=== PATIENT | male | born 1965 | race Hispanic/Latino ===

== ENCOUNTER 2017-05-28 20:00 | Inpatient (IN) | payer OTHER ==
--- OUTSIDE RECORDS SUMMARY | 2017-05-28 20:03 | XMS REPORT | Clinical Summary ---
:1965 Author Organization [facility] Address [address] [place] [address] Care Team Providers Name Role Phone Asked, No Pcp Primary Care Provider Unavailable Allergies No Known Allergies Current Medications Prescription Sig. Disp. Refills Start Date End Date Status metFORMIN (GLUCOPHAGE) Take 1,000 mg by Active 1,000 mg tablet mouth 2 (two) times a day with meals. glimepiride (AMARYL) 4 MG Take 4 mg by mouth Active tablet 2 (two) times a day with meals. lisinopril Take 10 mg by mouth Active (PRINIVIL,ZESTRIL) 10 mg daily. tablet rosuvastatin (CRESTOR) 40 Take 40 mg by mouth Active MG tablet daily. insulin detemir (LEVEMIR) Inject 30 Units Active 100 unit/mL injection under the skin daily. insulin lispro (HumaLOG) Inject 10 Units Active 100 unit/mL injection under the skin daily before breakfast. Active Problems Problem Noted Date Gastroenteritis 11/07/2016 Encounters Date Type Specialty Care Team Description 11/06/2016 - [facility] due to [facility] (Primary Dx); 11/07/2016 Encounter Medicine MD Maite Gastroenteritis after 05/27/2016 Social History Tobacco Use Types Packs/Day Years Used Date Never Smoker Alcohol Use Drinks/Week oz/Week Comments No Sex Assigned at Date Recorded Not on file Last Filed Vital Signs Vital Sign Reading Time Taken Blood Pressure 114/73 11/07/2016 3:21 PM CDT Pulse 99 11/07/2016 3:21 PM CDT Temperature 36.8 C (98.2 F) 11/07/2016 3:21 PM CDT Respiratory Rate 16 11/07/2016 3:21 PM CDT Oxygen Saturation 98% 11/07/2016 3:21 PM CDT Inhaled Oxygen Concentration - - Weight 125 kg (275 lb 3.2 oz) 11/06/2016 8:38 PM CDT Height 182.9 cm (6') 11/06/2016 8:28 PM CDT Body Mass Index 37.32 11/06/2016 8:38 PM CDT Plan of Treatment Not on file Results POC glucose (11/07/2016 11:10 AM)Only the most recent of3 resultswithin the time period is included. Component Value Ref Range POC glucose 117 (H) 65 - 99 mg/dL Comment: RN Notified Meter ID: [id number] Soap Grinder: Ti Peng Specimen Performing Laboratory [facility] DEPARTMENT OF PATHOLOGY AND GENOMIC MEDICINE [address] [place] [address] Salmonella/shigella culture (11/07/2016 9:00 AM) Component Value Ref Range Salmonella/shigella culture isolate No Aeromonas isolated Comment: Specimen Information Specimen Source: Stool Specimen Site: Per rectum Specimen Performing Laboratory Stool - Per rectum [facility] DEPARTMENT OF PATHOLOGY AND GENOMIC MEDICINE [address] [place] [id number] Gastrointestinal panel (11/07/2016 9:00 AM) Component Value Ref Range Gastrointestinal panel Positive for Enteropathogenic E coli Negative for all other pathogens tested: Negative for Salmonella Negative for Campylobacter Negative for Shigella Negative for Shiga-like toxin-producing E coli Negative for Plesiomonas shigelloides Negative for Yersinia enterocolitica Negative for Vibrio species Negative for Clostridium difficile (Toxin A/B) Negative for Cryptosporidium Negative for Giardia lamblia Negative for Cyclospora cayeteanensis Negative for Entamoeba histolytica Negative for Adenovirus F 40/41 Negative for Astrovirus Negative for Norovirus GI/GII Negative for Rotavirus A Negative for Sapovirus Negative for E coli 0157 This real-time PCR assay detects the presence of nucleic acids (RNA or DNA) for the gastrointestinal pathogens listed. A result of "Not-detected" does not exclude the possibility of the presence of one or more pathogens at concentrations less than the detectable limits of the assay.:* (A) Comment: Specimen Information Specimen Source: Stool Specimen Site: Per rectum Specimen Performing Laboratory Stool - Per rectum [facility] DEPARTMENT OF PATHOLOGY AND GENOMIC MEDICINE [address] [place] [address] Estimated GFR (11/07/2016 5:20 AM) Component Value Ref Range GFR Non Af Amer 71 mL/min/1.73 m2 GFR Af Amer 86 mL/min/1.73 m2 Comment: Chronic kidney disease: <60 mL/min/1.73m2 Kidney failure: <15 mL/min/1.73m2 The estimated GFR is calculated from the IDMS-traceable Modification of Diet in Renal Disease Equation. The accuracy of the calculation is poor when the creatinine is normal. Calculated values >90 mL/min/1.73m2 are not reported. This equation has not been validated in children (<18 years), women, the elderly (>70 years), or ethnic groups other than Caucasians and Americans. Specimen Performing Laboratory Plasma specimen [facility] DEPARTMENT PATHOLOGY AND [address] [address] CBC hemogram (11/07/2016 5:20 AM) Component Value Ref Range WBC 5.8 4.5 - 11.0 k/uL RBC 4.21 (L) 4.40 - 6.00 m/uL HGB 12.2 (L) 14.0 - 18.0 g/dL HCT 37.1 (L) 41.0 - 51.0 % MCV 88.1 82.0 - 100.0 fL MCH 29.0 27.0 - 34.0 pg MCHC 32.9 31.0 - 37.0 g/dL RDW - SD 42.2 37.0 - 55.0 fL MPV 11.0 6.9 - 11.0 fL Platelet count 180 150 - 400 K/uL Nucleated RBC 0.00 /100 WBC Specimen Performing Laboratory Blood [facility] DEPARTMENT PATHOLOGY AND [address] [address] Magnesium level (11/07/2016 5:20 AM) Component Value Ref Range Magnesium 2.1 1.6 - 2.6 mg/dL Specimen Performing Laboratory Plasma specimen [facility] PATH[facility] [address] [address] Comprehensive metabolic panel (11/07/2016 5:20 AM) Component Value Ref Range Sodium 142 135 - 148 mEq/L Potassium 4.0 3.5 - 5.0 mEq/L Chloride 102 98 - 112 mEq/L CO2 28 24 - 31 mEq/L Anion gap 12 7 - 15 mEq/L Comment: Starting from June , anion gap calculation no longer incorporates potassium. Please note the change. BUN 19 6 - 20 mg/dL Creatinine 1.1 0.7 - 1.2 mg/dL Glucose 110 (H) 65 - 99 mg/dL Calcium 8.6 8.3 - 10.2 mg/dL Protein 6.5 6.3 - 8.3 g/dL Albumin 3.6 3.5 - 5.0 g/dL A/G ratio 1.2 0.7 - 3.8 Alkaline phosphatase 47 40 - 129 U/L AST 18 10 - 50 U/L ALT 26 5 - 50 U/L Total bilirubin 1.0 0.2 - 1.2 mg/dL Specimen Performing Laboratory Plasma specimen [facility] DEPARTMENT OF PATHOLOGY AND GENOMIC MEDICINE [address] [place] [address] after 05/27/2016 Insurance Payer Benefit Plan / Group Subscriber ID Type Phone Address AETNA AETNA HMO,POS,EPO, MC/EC xxxxxxxxx HMO Work: [id number] [facility] [phone] [place] [id number] Home: [phone] [facility]
[2017-05-28 21:01] LABS: Absolute Lymphocytes (CBC) 1.3 K/uL (0.7-4.9); Absolute Monocytes 0.9 K/uL (0.1-1.3); Absolute Neutrophil 8.1 K/uL (1.8-8.0); Basophils % 0.5 % (0-1.3); Eosinophils % 1.1 % (0-4.4); Lymphocytes % 12.3 % (15.3-44.8); MCH 29.1 pg (27.0-35.0); MCV 85.1 fL (80-100); MPV 9.8 fL (7.6-11.3); Monocytes % 8.6 % (3.3-12.3); RBC Red Blood Cell Count 4.82 M/uL (4.33-5.43)
[2017-05-28 21:04] LABS: Protime INR 1.05
[2017-05-28 21:24] LABS: Potassium 3.8 mEq/L (3.6-5.0)
[2017-05-28 21:30] LABS: Bilirubin Direct 0.2 mg/dL (0-0.2); Bilirubin Total 1.2 mg/dL (0.3-1.2); Magnesium 1.7 mg/dL (1.8-2.5); Protein, Total 8.7 g/dL (6.0-8.3)
--- NOTE | 2017-05-28 22:00 | RAD REPORT ---
EXAM DESCRIPTION: RAD - Foot Right 3 View - 05/28/2017 8:54 pm CLINICAL HISTORY: Right foot pain and fourth digit wound FINDINGS: No fracture or dislocation is seen. A bony destructive lesion is not seen. Vascular calcif ications are present.
[2017-05-28] MEDS ORDERED: ONDANSETRON 4 MG/2 ML VIAL ONE (22:42)
[2017-05-28] MEDS ORDERED: Levofloxacin 750mg IV 750 MG/150 ML BAG IV ONE (22:42)
[2017-05-28] MEDS ORDERED: VANCOMYCIN/NS 1 gm 1 GM/250 ML BAG ONE (22:42)
[2017-05-28] MEDS ORDERED: MORPHINE 4 MG/ML SYR ONE (22:42)
--- NOTE | 2017-05-28 22:47 | ER ---
Nurse's Notes [facility] Name: Reese Esquivel Jr Age: 51 yrs Sex: Male : 1965 Arrival Date: 05/28/2017 Time: 20:03 Bed 8 Private MD: Diagnosis: Cellulitis and acute lymphangitis-Right Lower Limb;Unspecified open wound of toe without damage to nail-Right Fourth Presentation: 05/28 20:10 Presenting complaint: Patient states: seen by PCP (Vania Mai) about right foot. pt ak1 stated toe is "purple or black". Transition of care: patient was not received from another setting of care. Complicating Factors: There are no complicating factors for this patient. Onset of symptoms is unknown. Care prior to arrival: None. 20:10 Method Of Arrival: Ambulatory ak1 20:10 Acuity: RIAZ 3 ak1 Triage Assessment: 20:13 General: Appears in no apparent distress. Behavior is calm, cooperative. Pain: Denies ak1 pain. Historical: - Allergies: 20:13 Lisinopril; ak1 - Home Meds: 20:13 Crestor Oral once daily [Active]; Humalog 10 UNITS Sub-Q nightly [Active]; Levemir 50 ak1 UNITS subcutaneous soln nightly [Active]; Metformin Oral 2 times per day [Active]; - PMHx: 20:13 Diabetes - IDDM; Gastroparesis; High Cholesterol; Hypertension; ak1 - PSHx: 20:13 Cholecystectomy; ak1 - Immunization history:: Adult Immunizations unknown. - Social history:: Smoking status: Patient/guardian denies using tobacco. Screenin:30 Abuse screen: Denies threats or abuse. Nutritional screening: No deficits noted. tl2 Tuberculosis screening: No symptoms or risk factors identified. Fall Risk None identified. Assessment: 20:28 General: Appears in no apparent distress. comfortable, Behavior is calm, cooperative, tl2 appropriate for age. Pain: Denies pain. Neuro: Level of Consciousness is awake, alert, obeys commands, Oriented to person, place, time, situation. Cardiovascular: Denies chest pain. Respiratory: Airway is patent Respiratory effort is even, unlabored, Respiratory pattern is regular, symmetrical. GI: No signs and/or symptoms were reported involving the gastrointestinal system. : No signs and/or symptoms were reported regarding the genitourinary system. Derm: Wound noted right fourth toe Wound is open, pus filled, draining fluid Other: right fourth toe is shaffer in color. Musculoskeletal: Circulation, motion, and sensation intact. Swelling present in right fourth toe. 21:30 Reassessment: Patient appears in no apparent distress at this time. Patient and/or tl2 family updated on plan of care and expected duration. Pain level reassessed. Patient is alert, oriented x 3, equal unlabored respirations, skin warm/dry/pink. 22:20 Reassessment: Patient appears in no apparent distress at this time. Pt c/o of pain to tl2 right foot. red streaking evident on right leg. PA notified. 23:00 Reassessment: Patient appears in no apparent distress at this time. Patient and/or tl2 family updated on plan of care and expected duration. Pain level reassessed. Patient is alert, oriented x 3, equal unlabored respirations, skin warm/dry/pink. 05/29 00:00 Reassessment: Patient appears in no apparent distress at this time. Patient and/or tl2 family updated on plan of care and expected duration. Pain level reassessed. Patient is alert, oriented x 3, equal unlabored respirations, skin warm/dry/pink. Vital Signs: 05/28 20:11 BP 123 / 72; Pulse 128; Resp 18; Temp 99.1(O); Pulse Ox 100% on R/A; Weight 122.47 kg ak1 (R); Height 6 ft. 0 in. (182.88 cm) (R); Pain 0/10; 20:21 BP 126 / 78; Pulse 118; Resp 18; Pulse Ox 100% on R/A; mt 20:28 BP 126 / 78; Pulse 115; Resp 20; Pulse Ox 99% on R/A; tl2 21:08 BP 138 / 90; Pulse 115; Resp 18; Pulse Ox 99% on R/A; mt 22:10 BP 129 / 73; Pulse 110; Resp 18; Pulse Ox 95% on R/A; tl2 22:13 BP 129 / 73; Pulse 110; Resp 18; Temp 99.1(O); Pulse Ox 99% on R/A; tl2 22:49 BP 117 / 77; Pulse 96; Resp 18; Pulse Ox 96% on R/A; mt 23:03 BP 127 / 84; Pulse 98; Resp 18; Pulse Ox 98% on R/A; bp 05/29 00:06 BP 132 / 85; Pulse 99; Resp 18; Pulse Ox 98% on R/A; mt 00:32 BP 123 / 81; Pulse 98; Resp 17; Pulse Ox 96% on R/A; mt 05/28 20:11 Body Mass Index 36.62 (122.47 kg, 182.88 cm) ak1 ED Course: 05/28 20:03 Patient arrived in ED. es 20:11 Triage completed. ak1 20:13 Arm band placed on Patient placed in an exam room, on a stretcher, Patient notified of ak1 wait time. 20:27 Spring Barr, MICHAEL is Primary Nurse. tl2 20:28 Germain Muller PA is PHCP. cp 20:28 Alvrao Ritchie MD is Attending Physician. cp 20:30 Patient has correct armband on for positive identification. Bed in low position. Call tl2 light in reach. Side rails up X 1. 20:30 Inserted saline lock: 22 gauge in right antecubital area, using aseptic technique. tl2 Blood collected. 20:51 X-ray completed. Portable x-ray completed in exam room. Patient tolerated procedure kw1 well. 20:52 Wound Culture Sent. tl2 22:45 Henna Venegas MD is Hospitalizing Provider. cp 05/29 00:00 No provider procedures requiring assistance completed. Patient admitted, IV remains in tl2 place. Administered Medications: 05/28 22:39 Drug: LevaQUIN 750 mg Volume: 150 ml; Route: IVPB; Infused Over: 90 mins; Site: right tl2 antecubital; 05/29 00:12 Follow up: IV Status: Completed infusion tl2 05/28 22:39 Drug: morphine 4 mg Route: IVP; Site: right antecubital; tl2 23:00 Follow up: Response: Pain is decreased tl2 22:39 Drug: Zofran 4 mg Route: IVP; Site: right antecubital; tl2 23:00 Follow up: Response: No adverse reaction tl2 05/29 00:28 Not Given (sent upstairs with patient, not given in ED): vancoMYCIN 1 grams IVPB once tl2 over 2 hrs Outcome: 05/28 22:47 Decision to Hospitalize by Provider. cp 05/29 00:00 Admitted to Tele accompanied by tech, via wheelchair, room 429, with chart, Report tl2 called to MICHAEL Logan Condition: stable Discharge instructions given to patient, Instructed on the need for admit. 00:42 Patient left the ED. tl2 Signatures: Vicky Funes Amber RN RN ak1 Germain Muller PA PA cp Spring Barr RN RN tl2 Yin Flores mt, Brian, RN RN bp Cindy Boles kw1 Corrections: (The following items were deleted from the chart) 05/28 22:21 22:13 BP 129 / 73; Pulse 110bpm; Resp 18bpm; Pulse Ox 99% RA; al tl2
--- NOTE | 2017-05-28 22:47 | EDPHYS ---
Physician Documentation [facility] Name: Reese Esquivel Jr Age: 51 yrs Sex: Male : 1965 Arrival Date: 05/28/2017 Time: 20:03 Bed 8 Private MD: ED Physician Alvaro Ritchie HPI: 05/28 20:45 This 51 yrs old Male presents to ER via Ambulatory with complaints of cp Laceration To Foot, Diabetic. 20:45 The patient presents with wound. cp 20:45 The complaints affect the plantar surface right fourth toe. Context: resulted from an cp unknown cause, the patient can fully bear weight. Onset: The symptoms/episode began/occurred 3 week(s) ago. Associated signs and symptoms: Pertinent positives: swelling, chills, Pertinent negatives: calf tenderness, fever. Severity of symptoms: in the emergency department the symptoms are unchanged, despite home interventions. Historical: - Allergies: 20:13 Lisinopril; ak1 - Home Meds: 20:13 Crestor Oral once daily [Active]; Humalog 10 UNITS Sub-Q nightly [Active]; Levemir 50 ak1 UNITS subcutaneous soln nightly [Active]; Metformin Oral 2 times per day [Active]; - PMHx: 20:13 Diabetes - IDDM; Gastroparesis; High Cholesterol; Hypertension; ak1 - PSHx: 20:13 Cholecystectomy; ak1 - Immunization history:: Adult Immunizations unknown. - Social history:: Smoking status: Patient/guardian denies using tobacco. ROS: 20:50 Constitutional: Positive for chills, Negative for body aches, fever, poor PO intake. cp 20:50 Eyes: Negative for injury, pain, redness, and discharge. cp Exam: 21:00 ECG was reviewed by the Attending Physician. cp 21:00 Constitutional: The patient appears in no acute distress, alert, awake, cp non-diaphoretic, non-toxic, well developed, well nourished. 21:00 Head/Face: Normocephalic, atraumatic. cp 21:00 Eyes: Periorbital structures: appear normal, Conjunctiva: normal, no exudate, no injection, Sclera: no appreciated abnormality, Lids and lashes: appear normal, bilaterally. 21:00 ENT: External ear(s): are unremarkable, Nose: is normal, Mouth: is normal, Posterior pharynx: is normal, airway is patent, no erythema, no exudate, Voice: is normal. 21:00 Neck: ROM/movement: is normal, is supple, without pain, no range of motions limitations, no nuchal rigidity. 21:00 Chest/axilla: Inspection: normal, Palpation: is normal, no crepitus, no tenderness. 21:00 Cardiovascular: Rate: tachycardic, Rhythm: regular, Pulses: Pulses are 2+ in right dorsalis pedis artery. Edema: is not appreciated. 21:00 Respiratory: the patient does not display signs of respiratory distress, Respirations: normal, no use of accessory muscles, no retractions, no splinting, no tachypnea, labored breathing, is not present, Breath sounds: are clear throughout, no decreased breath sounds, no stridor, no wheezing. 21:00 Abdomen/GI: Inspection: abdomen appears normal, Bowel sounds: active, all quadrants, Palpation: abdomen is soft and non-tender, in all quadrants, rebound tenderness, is not appreciated, voluntary guarding, is not appreciated, involuntary guarding, is not appreciated. 21:00 Skin: open wound noted underside and lateral aspect right fourth toe with mild drainage, moderate swelling, advancing erythema. 21:00 Neuro: Sensation: light touch is decreased in the right fourth toe. Vital Signs: 20:11 BP 123 / 72; Pulse 128; Resp 18; Temp 99.1(O); Pulse Ox 100% on R/A; Weight 122.47 kg ak1 (R); Height 6 ft. 0 in. (182.88 cm) (R); Pain 0/10; 20:21 BP 126 / 78; Pulse 118; Resp 18; Pulse Ox 100% on R/A; mt 20:28 BP 126 / 78; Pulse 115; Resp 20; Pulse Ox 99% on R/A; tl2 21:08 BP 138 / 90; Pulse 115; Resp 18; Pulse Ox 99% on R/A; mt 22:10 BP 129 / 73; Pulse 110; Resp 18; Pulse Ox 95% on R/A; tl2 22:13 BP 129 / 73; Pulse 110; Resp 18; Temp 99.1(O); Pulse Ox 99% on R/A; tl2 22:49 BP 117 / 77; Pulse 96; Resp 18; Pulse Ox 96% on R/A; mt 23:03 BP 127 / 84; Pulse 98; Resp 18; Pulse Ox 98% on R/A; bp 03/16 00:06 BP 132 / 85; Pulse 99; Resp 18; Pulse Ox 98% on R/A; mt 00:32 BP 123 / 81; Pulse 98; Resp 17; Pulse Ox 96% on R/A; mt 05/28 20:11 Body Mass Index 36.62 (122.47 kg, 182.88 cm) ak1 MDM: 05/28 20:28 Patient medically screened. cp 22:43 Data reviewed: vital signs, nurses notes, lab test result(s), radiologic studies, plain cp films. 05/28 20:41 Order name: Wound Culture cp 05/28 20:41 Order name: Blood Culture Adult (2) cp 05/28 20:41 Order name: Basic Metabolic Panel cp 05/28 20:41 Order name: CBC with Diff 05/28 20:41 Order name: LFT's cp 05/28 20:41 Order name: Magnesium cp 05/28 20:41 Order name: PT-INR cp 05/28 20:41 Order name: Ptt, Activated cp 05/28 21:12 Order name: Protime (+INR); Complete Time: 22:19 EDMS 05/28 21:12 Order name: PTT, Activated Partial Thromb; Complete Time: 22:19 EDMS 05/28 21:15 Order name: CBC with Automated Diff; Complete Time: 22:19 EDMS 05/28 21:25 Order name: Basic Metabolic Panel; Complete Time: 22:19 EDMS 05/28 22:19 Interpretation: Normal except: NA 134; CL 99; GLUC 173; CRE 1.39; GFR 54. cp 05/28 21:31 Order name: Liver (Hepatic) Function; Complete Time: 22:19 EDMS 05/28 21:31 Order name: Magnesium; Complete Time: 22:19 EDMS 05/28 20:36 Order name: XRAY Foot RIGHT 3 View cp 05/28 20:41 Order name: EKG; Complete Time: 20:42 cp 05/28 20:41 Order name: Cardiac monitoring; Complete Time: 20:52 cp 05/28 20:41 Order name: EKG - Nurse/Tech; Complete Time: 20:52 cp 05/28 20:41 Order name: IV Saline Lock; Complete Time: 20:52 cp 05/28 20:41 Order name: Labs collected and sent; Complete Time: 20:52 cp 05/28 20:41 Order name: O2 Per Protocol; Complete Time: 20:52 cp 05/28 20:41 Order name: O2 Sat Monitoring; Complete Time: 20:52 cp 05/28 22:00 Order name: RAD; Complete Time: 22:19 EDMS EC:00 Rate is 117 beats/min. Rhythm is regular. GA interval is normal. QRS interval is cp prolonged at 144 msec. QT interval is normal. Interpreted by me. Reviewed by me. Administered Medications: 22:39 Drug: LevaQUIN 750 mg Volume: 150 ml; Route: IVPB; Infused Over: 90 mins; Site: right tl2 antecubital; 05/29 00:12 Follow up: IV Status: Completed infusion tl2 05/28 22:39 Drug: morphine 4 mg Route: IVP; Site: right antecubital; tl2 23:00 Follow up: Response: Pain is decreased tl2 22:39 Drug: Zofran 4 mg Route: IVP; Site: right antecubital; tl2 23:00 Follow up: Response: No adverse reaction tl2 05/29 00:28 Not Given (sent upstairs with patient, not given in ED): vancoMYCIN 1 grams IVPB once tl2 over 2 hrs Disposition: 06:59 Co-signature as Attending Physician, Alvaro Ritchie MD Available for consultation at ps1 all times. . Disposition: 05/28/17 22:47 Hospitalization ordered by Henna Venegas for Inpatient Admission. Preliminary diagnosis are Cellulitis and acute lymphangitis - Right Lower Limb, Unspecified open wound of toe without damage to nail - Right Fourth. - Bed requested for Telemetry/MedSurg (Inpatient). - Status is Inpatient Admission. tl2 - Condition is Stable. - Problem is new. - Symptoms are unchanged. UTI on Admission? No Signatures: Dispatcher [employer] EDMS Meka Mcgarry2 Diana Cabrales RN RN mw Krenek, Amber, RN RN ak1 Germain Muller PA PA Spring Kilpatrick RN RN tl2 Alvaro Ritchie MD MD ps1
[2017-05-28] MEDS ORDERED: ACETAMINOPHEN 500 MG TAB PO PRN (23:51)
[2017-05-28] MEDS ORDERED: ONDANSETRON 4 MG/2 ML VIAL IV PRN (23:51)
[2017-05-28] MEDS ORDERED: D50W 25 GM/50 ML SYRINGE IV PRN (23:55)
[2017-05-28] MEDS ORDERED: GLUCAGON 1 MG/VIAL IM PRN (23:55)
[2017-05-29] MEDS: NA CHLORIDE 0.9% 1,000 ML IV SCH ×3 (00:47→16:11)
[2017-05-29] MEDS: VANCOMYCIN/NS 1 gm 1 GM/250 ML BAG IV ONE ×2 (01:00→03:26)
[2017-05-29] MEDS ORDERED: SODIUM CHLORIDE 0.9% 10ML INJ IV PRN (01:43)
[2017-05-29] MEDS ORDERED: MAGNES/ALUMIN/SIMET 30ML UCUP PO ONE (01:43)
[2017-05-29] MEDS ORDERED: PANTOPRAZOLE 40 MG INJ IVP ONE (01:43)
[2017-05-29 05:28] LABS: Absolute Lymphocytes (CBC) 1.5 K/uL (0.7-4.9); Absolute Monocytes 0.9 K/uL (0.1-1.3); Basophils % 0.8 % (0-1.3); Eosinophils % 0.5 % (0-4.4); Hematocrit 36.4 % (39.6-49.0); Lymphocytes % 15.7 % (15.3-44.8); MCH 28.6 pg (27.0-35.0); Monocytes % 9.2 % (3.3-12.3); RBC Red Blood Cell Count 4.23 M/uL (4.33-5.43)
[2017-05-29 05:43] LABS: Potassium 4.4 mEq/L (3.6-5.0)
[2017-05-29 05:44] LABS: Urine Appearance CLEAR; Urine Bilirubin NEGATIVE (NEG); Urine Blood TRACE (NEG); Urine Color YELLOW; Urine Glucose 3+ (NEG); Urine Protein 2+ (NEG); Urine Specific Gravity 1.025 (1.005-1.030); Urine Urobilinogen 0.2 mg/dL (0.2-1.0); Urine pH 5.5 (5.0-7.0)
[2017-05-29 05:48] LABS: Urine Microscopic Reflex ORDER UMIC
[2017-05-29 06:02] LABS: Urine Bacteria <20 /HPF (NONE SEEN); Urine Culture Reflex Order NOT NEEDED; Urine RBC <5 /HPF (NONE SEEN)
--- NOTE | 2017-05-29 07:39 | EKG ---
Test Date: 2017-05-28 Test Time: 20:53:43 [employer] Director: BILL MEASUREMENT RESULTS: Intervals: Rate: 117 OH: 144 QRSD: 144 QT: 348 QTc: 485 [place]: P: 61 OH: 144 QRS: -50 T: 52 INTERPRETIVE STATEMENTS: Sinus tachycardia Right bundle branch block Left anterior fascicular block Bifascicular block Voltage criteria for left ventricular hypertrophy Abnormal ECG Compared to ECG 03/20/2016 20:32:49 Sinus rhythm no longer present Bifascicular block still present Electronically Signed On 05-29-17 07:39:00 CDT by Trevon Malone
[2017-05-29] MEDS ORDERED: INSULIN DETEMIR 100 UNIT/1 ML INSULIN SQ SCH (08:00)
[2017-05-29] MEDS: METOPROLOL TAR 25 MG TAB PO SCH ×2 (08:00→20:31)
--- NOTE | 2017-05-29 08:00 | P.HP ---
Certification for Inpatient Patient admitted to: Inpatient With expected LOS: >2 Midnights Patient will require the following post-hospital care: None Practitioner: I am a practitioner with admitting privileges, knowledge of patient current condition, hospital course, and medical plan of care. Services: Services provided to patient in accordance with Admission requirements found in Title 42 Section 412.3 of the Code of Federal Regulations Patient History Date of Service: 05/29/17 Reason for admission: diabetic foot ulcer History of Present Illness: Patient is a 51-year-old gentleman with a history of diabetes times 20 years. He takes long-acting insulin to control his blood sugars. He had been working in [employer] stubbed his toe. He develop some erythema in the toe initially. This morning he looked status toe in and had been discolored. There was a bluish hue to it. Patient went to see his PCP who prescribed antibiotics. However, his concern was his toe was getting worse and he has streaking up his right leg so he came to the emergency room. In the emergency room he was evaluated. He has a normal white count with no fevers. However he does have streaking up his right salvador. He will be admitted to the hospital for MRI of the foot. If this is negative she should be able to go home. He does have significant diabetic neuropathy on exam. He will need close follow-up. Allergies lisinopril Allergy (Severe, Verified 05/29/17 00:46) Hives Home Medications: Insulin -Regular Human [Novolin -R*] 10 unit SQ AC 05/29/17 Insulin Detemir [Levemir] 40 unit SQ BEDTIME 05/29/17 Metformin HCl [Glucophage] 1,000 mg PO BID 05/29/17 Polyethylene Glycol 3350 [Miralax] 1 packet PO DAILYPRN PRN 05/29/17 Rosuvastatin [Crestor*] 1 tab PO BEDTIME 05/29/17 - Past Medical/Surgical History Diabetic: Yes -: gastroparesis -: SLEEP APNEA -: HYPERLIPIDEMIA -: htn -: high cholesterol -: pud -: esophagitis -: Laparoscopic cholecystectomy(03/05/2016) - Family History Father Medical History: Diabetes Mother Medical History: Hypertension - Social History Smoking Status: Never smoker Alcohol use: No CD- Drugs: No Caffeine use: Yes Place of Residence: Home Review of Systems 10-point ROS is otherwise unremarkable Physical Examination - Vital Signs Temperature: 97.4 F Blood Pressure: 133/80 Pulse: 98 Respirations: 16 Pulse Ox (%): 98 - Physical Exam General: Alert, In no apparent distress, Oriented x3 HEENT: Atraumatic, PERRLA, Mucous membr. moist/pink, EOMI, Sclerae nonicteric Neck: Supple, 2+ carotid pulse no bruit, No LAD, Without JVD or thyroid abnormality Respiratory: Clear to auscultation bilaterally, Normal air movement Cardiovascular: Regular rate/rhythm, Normal S1 S2, No murmurs Gastrointestinal: Normal bowel sounds, Soft and benign, Non-distended, No tenderness Musculoskeletal: No clubbing, No swelling, No tenderness Integumentary: No rashes Neurological: Normal gait, Normal speech, Normal strength at 5/5 x4 extr, Normal tone, Sensation intact, Cranial nerves 3-12 intact, Normal affect Lymphatics: No axilla or inguinal lymphadenopathy - Studies Laboratory Data (last 24 hrs) 05/28/17 20:30: PT 12.4, INR 1.05, APTT 27.1 05/28/17 20:30: WBC 10.5, Hgb 14.0, Hct 41.0, Plt Count 241 05/28/17 20:30: Sodium 134 L, Potassium 3.8, BUN 19, Creatinine 1.39 H, Glucose 173 H, Magnesium 1.7 L, Total Bilirubin 1.2, AST 21, ALT 19, Alkaline Phosphatase 77 Assessment & Plan - Problems (Diagnosis) (1) Diabetic foot ulcer Current Visit: Yes Status: Acute (2) Cellulitis Current Visit: Yes Status: Acute (3) Diabetic neuropathy Current Visit: Yes Status: Acute (4) Obesity (BMI 30-39.9) Current Visit: Yes Status: Acute (5) GERD (gastroesophageal reflux disease) Current Visit: No Status: Acute Qualifiers: (6) Malignant hypertension Current Visit: No Status: Acute (7) Sleep apnea Current Visit: No Status: Acute (8) Diabetes mellitus Onset Date: 09/24/15 Current Visit: No Status: Chronic Qualifiers: - Plan 1. Continue with IV antibiotic 2. Continue with local wound care 3. Surgical consultation depending on MRI findings 4. Gentle IV hydration 5. MRI of the foot 6. Strict blood sugar monitoring 7. Pain control 8. GI and DVT prophylaxis Discharge Plan: Home Plan to discharge in: Greater than 2 days - Advance Directives Does patient have a Living Will: No Does patient have a Durable POA for Healthcare: No - Code Status/Comfort Care Code Status Assessed: Yes Code Status: Full Code Critical Care: No Time Spent Managing PTS Care (In Minutes): 50
[2017-05-29] MEDS: PANTOPRAZOLE 40MG TABLET PO SCH ×2 (08:01→20:31)
[2017-05-29] MEDS: SUCRALFATE 1 GM TABLET PO SCH ×4 (08:01→20:30)
[2017-05-29] MEDS: ASPIRIN 81 MG CHEWABLE TABLET PO SCH (08:01)
[2017-05-29] MEDS ORDERED: PANTOPRAZOLE 40 MG INJ IVP SCH (09:00)
[2017-05-29] MEDS ORDERED: VANCOMYCIN 1.5 GM in NA CHLORIDE 0.9% 500 ML IVPB SCH (09:00)
[2017-05-29 10:35] LABS: A1c Component 1.35 mg/dL; Hemoglobin A1c 12.4 % (4-6.0)
--- NOTE | 2017-05-29 10:47 | RAD REPORT ---
EXAM DESCRIPTION: MRI - Foot Right Wo Cont - 05/29/2017 9:45 am CLINICAL HISTORY: Right foot pain and swelling. COMPARISON: None. TECHNIQUE: Axial, sagittal and coronal magnetic resonance imaging of the right foot was obtained. FINDINGS: Abnormal signal is present throughout most of the fourth proximal and middle phalanges. Ed linda is present within the adjacent subcutaneous tissues. A small area of abnormal signal involves the base of the fourth distal phalanx as well. A soft tissue abscess is not seen. IMPRESSION: Osteomyelitis involving almost all of the fourth proximal and middle phalanges. A small area of osteomyelitis also involves the base of the fourth distal phalanx.
--- NOTE | 2017-05-29 10:57 | RAD REPORT ---
EXAM DESCRIPTION: VAS - Lower Extremity Artery Uni Ltd - 05/29/2017 10:39 am CLINICAL HISTORY: Peripheral arterial disease. COMPARISON: None. FINDINGS: Spectral, color and power Doppler interrogation of the right lower extremity arterial syst em was performed. Triphasic waveforms are seen throughout the right lower extremity arterial system. Mild atherosclerot ic plaquing is seen in the posterior tibial artery and dorsalis pedis artery. No occlusion or stenosi s. IMPRESSION: No significant right lower extremity arterial vascular disease seen.
[2017-05-29] MEDS ORDERED: VANCOMYCIN 2 GM in NA CHLORIDE 0.9% 500 ML IVPB SCH (15:00)
[2017-05-29] MEDS: PIPER/TAZO/NS 3.375gm 3.375 GM/100 ML BAG IV SCH (16:16)
[2017-05-29] MEDS: VANCOMYCIN 2 GM in NA CHLORIDE 0.9% 500 ML IVPB SCH (20:30)
[2017-05-29] MEDS: INSULIN DETEMIR 100 UNIT/1 ML INSULIN SQ SCH (20:30)
[2017-05-29] MEDS: ATORVASTATIN 20 MG TAB PO SCH (20:31)
[2017-05-29] MEDS: ROSUVASTATIN 10 MG TAB PO SCH (20:31)
[2017-05-29] MEDS ORDERED: Levofloxacin500mg IV 500 MG/100 ML BAG IV SCH (22:00)
[2017-05-30] MEDS: PIPER/TAZO/NS 3.375gm 3.375 GM/100 ML BAG IV SCH ×3 (00:41→16:46)
--- NOTE | 2017-05-30 03:28 | CON ---
Date of Consultation: 05/29/2017 Reason For Service: Right foot diabetic ulcer with cellulitis, osteomyelitis and ischemic changes of the right fourth toe. Indications: This is the case of a 51-year-old patient with history of diabetes who comes to the [facility] with cellulitis over the right foot region found to have an ulcer on the lateral aspect of the fourth toe with bone involvement. He has not been able to use his shoes. He is trying to do the bes t he can with his diabetes. He denies any trauma, dysuria, hematochezia, or melena. Review of Systems: Constitutional: Denies any fever. Gastrointestinal: Denies any nausea, vomiting. Respiratory: Denies any short of breath. Allergies: LISINOPRIL. Medications: Insulin, metformin, Crestor. Medical Problems: As above plus high cholesterol, hyperlipidemia, sleep apnea, hypertension. He flores s not smoke. He does not drink alcohol. Family History: Diabetes. Physical Examination: General: The patient is awake and alert. HEENT: Pupils are equal and reactive, anicteric. Neck: Supple. Chest: Clear. Abdomen: Soft and depressible. Extremities: The patient has a good peripheral pulses femoral popliteal and dorsalis pedis. On the right foot, fourth toe, the patient has ischemia of that toe over the entire foot, associated with a lateral ulcer of that fourth toe with bone exposed. Decrease capillary refill on that toe. MRI of t hat foot shows osteomyelitis involving almost in all the fourth proximal and middle phalanx with oste omyelitis of the fourth distal phalanx. Laboratory Data: Blood work shows WBC count of 10.5, INR is 1.25. Hemoglobin A1c 12.4. Assessment: A 51-year-old patient with diabetic foot ulcer infected osteomyelitis present. We are g oing to use Santyl and we are going to put dressings in between trying to keep the area dry as we can . He was explained the importance of glucose control, diabetes control, diet and proper shoes. At t his moment, he has strong peripheral pulses. Hopefully, when we control his infection, his ischemia improve otherwise he may need an amputation of that toe. He understands that. HM/MODL Voice ID: [id number] Report ID: [id number]
[2017-05-30] MEDS: NA CHLORIDE 0.9% 1,000 ML IV SCH ×2 (05:45→14:35)
[2017-05-30] MEDS: INSULIN DETEMIR 100 UNIT/1 ML INSULIN SQ SCH ×2 (08:23→20:56)
[2017-05-30] MEDS: ASPIRIN 81 MG CHEWABLE TABLET PO SCH (08:24)
[2017-05-30] MEDS: METOPROLOL TAR 25 MG TAB PO SCH ×2 (08:24→20:57)
[2017-05-30] MEDS: PANTOPRAZOLE 40MG TABLET PO SCH ×2 (08:24→20:57)
[2017-05-30] MEDS: SUCRALFATE 1 GM TABLET PO SCH ×4 (08:24→20:56)
--- NOTE | 2017-05-30 13:27 | P.PN ---
Subjective Date of Service: 05/30/17 Chief Complaint: diabetic foot ulcer Examined at bedside with RN. Chart reviewed. Case discussed with general surgery. At this time patient states that he feels better. Cellulitis of the leg improving on IV antibiotics Review of Systems General: As per HPI Physical Examination - Vital Signs Temperature: 97.9 F Blood Pressure: 161/85 Pulse: 71 Respirations: 18 Pulse Ox (%): 99 - Physical Exam General: Alert, In no apparent distress, Oriented x3 HEENT: Atraumatic, PERRLA, EOMI Neck: Supple, JVD not distended Respiratory: Clear to auscultation bilaterally, Normal air movement Cardiovascular: Regular rate/rhythm, Normal S1 S2 Gastrointestinal: Normal bowel sounds, No tenderness Musculoskeletal: Erythema, Tenderness, Warmth Integumentary: Skin breakdown Neurological: Normal speech, Normal tone, Normal affect Lymphatics: No axilla or inguinal lymphadenopathy - Studies Microbiology Data (last 24 hrs): 05/28/17 20:30 Wound - Right Toe Gram Stain - Final Medications List Reviewed: Yes Assessment & Plan - Problems (Diagnosis) (1) Cellulitis Onset Date: 05/29/17 Current Visit: Yes Status: Acute Plan: cellulites of the left lower extremity -IV abx and wound care -Xray of the foot + for osteomylitis -Dr Steward and Dr Gastelum consulted. -Culture pending. Growing 3+ beta hemolytic thus far Qualifiers: Site of cellulitis: extremity Site of cellulitis of extremity: lower extremity Laterality: left Qualified Code(s): L03.116 - Cellulitis of left lower limb (2) Diabetic foot ulcer Onset Date: 05/29/17 Current Visit: Yes Status: Acute Plan: See # 1 Qualifiers: Diabetic foot ulcer location: toe Diabetes mellitus type: type 2 Laterality: left Non-pressure ulcer stage: with bone involvement without evidence of necrosis Qualified Code(s): E11.621 - Type 2 diabetes mellitus with foot ulcer; L97.526 - Non-pressure chronic ulcer of other part of left foot with bone involvement without evidence of necrosis; L97.526 - Non-pressure chronic ulcer of other part of left foot with bone involvement without evidence of necrosis; L97.526 - Non-pressure chronic ulcer of other part of left foot with bone involvement without evidence of necrosis; L97.526 - Non-pressure chronic ulcer of other part of left foot with bone involvement without evidence of necrosis (3) GERD (gastroesophageal reflux disease) Onset Date: 05/29/17 Current Visit: Yes Status: Chronic Qualifiers: Esophagitis presence: without esophagitis Qualified Code(s): K21.9 - Gastro -esophageal reflux disease without esophagitis (4) Obesity (BMI 30-39.9) Onset Date: 05/29/17 Current Visit: Yes Status: Chronic (5) Diabetes mellitus Onset Date: 09/24/15 Current Visit: No Status: Chronic Qualifiers: Diabetes mellitus type: type 2 Diabetes mellitus marine oil terminal superintendent insulin use: with marine oil terminal superintendent use Diabetes mellitus complication status: with circulatory complication Diabetes mellitus complication detail: with peripheral angiopathy without gangrene Qualified Code(s): E11.51 - Type 2 diabetes mellitus with diabetic peripheral angiopathy without gangrene; Z79.4 - residential (current) use of insulin; Z79.4 - director long term care (current) use of insulin; Z79.4 - director long term care (current) use of insulin; Z79.4 - director long term care (current) use of insulin (6) Hyperlipidemia Onset Date: 09/24/15 Current Visit: No Status: Chronic Qualifiers: Hyperlipidemia type: mixed hyperlipidemia Qualified Code(s): E78.2 - Mixed hyperlipidemia Discharge Plan: LTAC Plan to discharge in: 48 Hours - Code Status/Comfort Care Code Status Assessed: Yes Critical Care: No
[2017-05-30] MEDS: VANCOMYCIN 2 GM in NA CHLORIDE 0.9% 500 ML IVPB SCH (14:34)
--- NOTE | 2017-05-30 17:44 | PN ---
Date of Progress Note: 05/30/2017 Subjective: Diagnosis of cellulitis of the right foot with infected diabetic ulcer osteomyelitis rig ht 4th toe. The patient improved and no fever. Review of Systems: Respiratory: No shortness of breath. Gastrointestinal: No nausea. No vomiting. Extremities: Aspiration. Please the patient's H and P. Physical Examination: General: The patient is awake and alert. No distress. Abdomen: Benign. Extremities: Right foot looks better, less erythema. The toe is still ischemic, localized to 4th to e only. Dorsalis pedis pulse is still present, ulcer delineating. Laboratory Data: Blood work shows a glucose 164. Assessment: A 51-year-old patient with cellulitis of the right leg and foot with osteomyelitis of th e right fourth toe with diabetic infected ulcer. Continue Santyl. Continue hydration. Glucose cont rol. IV antibiotics. Plan: The patient will be taken to surgery in the next 24 to 48 hours to delineate to do debridement of tissue that is already devitalized with no chance of recovery. We explained to him the consent f or debridement of the right toe diabetic ulcer with benefits, alternatives, and risks including but n ot limiting to infection, bleeding, damage to adjacent structures, nonhealing of the wound, [place], and even . He understands he may still need amputation of that toe. HM/MODL Voice ID: [id number] Report ID: [id number]
[2017-05-30] MEDS: ATORVASTATIN 20 MG TAB PO SCH (20:56)
[2017-05-30] MEDS: ROSUVASTATIN 10 MG TAB PO SCH (20:56)
[2017-05-30] MEDS: MORPHINE 2 MG/ML SYR IV PRN (20:58)
[2017-05-31] MEDS: PIPER/TAZO/NS 3.375gm 3.375 GM/100 ML BAG IV SCH ×3 (00:12→16:47)
[2017-05-31] MEDS: NA CHLORIDE 0.9% 1,000 ML IV SCH ×2 (01:45→08:06)
[2017-05-31] MEDS: MORPHINE 2 MG/ML SYR IV PRN (04:24)
[2017-05-31] MEDS: METOPROLOL TAR 25 MG TAB PO SCH ×2 (08:02→21:21)
[2017-05-31] MEDS: ASPIRIN 81 MG CHEWABLE TABLET PO SCH (08:03)
[2017-05-31] MEDS: PANTOPRAZOLE 40MG TABLET PO SCH ×2 (08:03→21:22)
[2017-05-31] MEDS: SUCRALFATE 1 GM TABLET PO SCH ×4 (08:03→21:21)
[2017-05-31] MEDS: INSULIN DETEMIR 100 UNIT/1 ML INSULIN SQ SCH ×2 (08:04→21:20)
[2017-05-31] MEDS: COLLAGENASE 30 GM OINTMENT TOP SCH (08:05)
[2017-05-31] MEDS: VANCOMYCIN 2 GM in NA CHLORIDE 0.9% 500 ML IVPB SCH ×2 (09:53→21:21)
--- NOTE | 2017-05-31 12:20 | P.PN ---
Subjective Date of Service: 05/31/17 Chief Complaint: diabetic foot ulcer Examined at bedside with RN. Chart reviewed. Case discussed with general surgery. At this time patient states that he feels better. Cellulitis of the leg improving on IV antibiotics. Culture + for Group A strep Review of Systems 10-point ROS is otherwise unremarkable Physical Examination - Vital Signs Temperature: 97.2 F Blood Pressure: 170/83 Pulse: 76 Respirations: 98 Pulse Ox (%): 98 - Physical Exam General: Alert, In no apparent distress, Oriented x3 HEENT: Atraumatic, PERRLA, EOMI Neck: Supple, JVD not distended Respiratory: Clear to auscultation bilaterally, Normal air movement Cardiovascular: Regular rate/rhythm, Normal S1 S2 Gastrointestinal: Normal bowel sounds, No tenderness Musculoskeletal: Erythema, Tenderness Integumentary: Skin breakdown Neurological: Normal speech, Normal tone, Normal affect Lymphatics: No axilla or inguinal lymphadenopathy - Studies Microbiology Data (last 24 hrs): 05/28/17 20:30 Wound - Right Toe Gram Stain - Final 05/28/17 20:30 Wound - Right Toe Culture & Sensitivity - Final Streptococcus Agalactiae H Medications List Reviewed: Yes Assessment & Plan - Problems (Diagnosis) (1) Cellulitis Onset Date: 05/29/17 Current Visit: Yes Status: Acute Plan: cellulites of the right lower extremity. Improving today -IV abx and wound care -Xray of the foot + for osteomylitis -Dr Steward and Dr Gastelum consulted. -Possible OR peña for surgical procedure -Culture pending. Growing Strep Agalatice Qualifiers: Site of cellulitis: extremity Site of cellulitis of extremity: lower extremity Laterality: left Qualified Code(s): L03.116 - Cellulitis of left lower limb (2) Diabetic foot ulcer Onset Date: 05/29/17 Current Visit: Yes Status: Acute Plan: See # 1 Qualifiers: Diabetic foot ulcer location: toe Diabetes mellitus type: type 2 Laterality: left Non-pressure ulcer stage: with bone involvement without evidence of necrosis Qualified Code(s): E11.621 - Type 2 diabetes mellitus with foot ulcer; L97.526 - Non-pressure chronic ulcer of other part of left foot with bone involvement without evidence of necrosis; L97.526 - Non-pressure chronic ulcer of other part of left foot with bone involvement without evidence of necrosis; L97.526 - Non-pressure chronic ulcer of other part of left foot with bone involvement without evidence of necrosis; L97.526 - Non-pressure chronic ulcer of other part of left foot with bone involvement without evidence of necrosis (3) GERD (gastroesophageal reflux disease) Onset Date: 05/29/17 Current Visit: Yes Status: Chronic Qualifiers: Esophagitis presence: without esophagitis Qualified Code(s): K21.9 - Gastro -esophageal reflux disease without esophagitis (4) Obesity (BMI 30-39.9) Onset Date: 05/29/17 Current Visit: Yes Status: Chronic (5) Diabetes mellitus Onset Date: 09/24/15 Current Visit: No Status: Chronic Qualifiers: Diabetes mellitus type: type 2 Diabetes mellitus terminal makeup operator insulin use: with terminal makeup operator use Diabetes mellitus complication status: with circulatory complication Diabetes mellitus complication detail: with peripheral angiopathy without gangrene Qualified Code(s): E11.51 - Type 2 diabetes mellitus with diabetic peripheral angiopathy without gangrene; Z79.4 - bed bug exterminator (current) use of insulin; Z79.4 - senior living (current) use of insulin; Z79.4 - senior living (current) use of insulin; Z79.4 - senior living (current) use of insulin (6) Hyperlipidemia Onset Date: 09/24/15 Current Visit: No Status: Chronic Qualifiers: Hyperlipidemia type: mixed hyperlipidemia Qualified Code(s): E78.2 - Mixed hyperlipidemia
[2017-05-31] MEDS: ROSUVASTATIN 10 MG TAB PO SCH (21:21)
[2017-05-31] MEDS: ATORVASTATIN 20 MG TAB PO SCH (21:22)
[2017-06-01] MEDS: MORPHINE 2 MG/ML SYR IV PRN ×2 (00:36→05:47)
[2017-06-01] MEDS: NA CHLORIDE 0.9% 1,000 ML IV SCH ×5 (00:37→22:34)
[2017-06-01] MEDS: PIPER/TAZO/NS 3.375gm 3.375 GM/100 ML BAG IV SCH ×3 (01:00→16:33)
[2017-06-01 06:11] LABS: Absolute Lymphocytes (CBC) 1.1 K/uL (0.7-4.9); Absolute Monocytes 0.6 K/uL (0.1-1.3); Absolute Neutrophil 5.7 K/uL (1.8-8.0); Basophils % 0.9 % (0-1.3); Eosinophils % 2.6 % (0-4.4); Hematocrit 36.8 % (39.6-49.0); Lymphocytes % 13.9 % (15.3-44.8); MCH 28.5 pg (27.0-35.0); MCV 86.1 fL (80-100); MPV 9.6 fL (7.6-11.3); Monocytes % 8.3 % (3.3-12.3); RBC Red Blood Cell Count 4.27 M/uL (4.33-5.43)
[2017-06-01 06:52] LABS: Albumin 2.8 g/dL (3.2-5.5); Bilirubin Total 0.9 mg/dL (0.3-1.2); Potassium 3.9 mEq/L (3.6-5.0); Protein, Total 6.6 g/dL (6.0-8.3)
[2017-06-01] MEDS: SUCRALFATE 1 GM TABLET PO SCH ×4 (09:00→22:27)
[2017-06-01] MEDS: PANTOPRAZOLE 40MG TABLET PO SCH ×2 (09:00→22:28)
[2017-06-01] MEDS: METOPROLOL TAR 25 MG TAB PO SCH ×2 (09:00→22:27)
[2017-06-01] MEDS: ASPIRIN 81 MG CHEWABLE TABLET PO SCH (09:00)
[2017-06-01] MEDS: COLLAGENASE 30 GM OINTMENT TOP SCH (09:00)
[2017-06-01] MEDS: VANCOMYCIN 2 GM in NA CHLORIDE 0.9% 500 ML IVPB SCH ×3 (10:52→22:28)
[2017-06-01] MEDS ORDERED: COLLAGENASE 30 GM OINTMENT TOP ONE (11:00)
[2017-06-01] MEDS ORDERED: PROPOFOL 200 MG/20 ML VIAL IV ONE (11:01)
[2017-06-01] MEDS ORDERED: MIDAZOLAM HCL 2 MG/2 ML INJ ONE (11:02)
[2017-06-01] MEDS ORDERED: LIDOCAINE 2% MPF 5 ML VIAL ONE (11:02)
[2017-06-01] MEDS ORDERED: FENTANYL CITR 100 MCG/2 ML ONE (11:03)
[2017-06-01] MEDS ORDERED: ROCURONIUM 50 MG/5 ML VIAL IV ONE (11:03)
[2017-06-01] MEDS ORDERED: ONDANSETRON 4 MG/2 ML VIAL ONE (11:03)
--- NOTE | 2017-06-01 11:27 | P.BOP ---
Preoperative diagnosis: gangrenous diabetic ulcer R 4th toe with foot cellulitis and osteomyelitis Postoperative diagnosis: same Primary procedure: Excisional debridement of necrotic infected diabetic left 4th toe ulcer Secondary procedure: with drainage of abcess 4th toe Estimated blood loss: <5cc Specimen: necrotic tissue, culture Findings: see dictation Anesthesia: General Complications: None Transferred to: Recovery Room Condition: Good
--- NOTE | 2017-06-01 14:07 | P.PN ---
Subjective Date of Service: 05/31/17 Chief Complaint: diabetic foot necrotic ulcer with toe gangreneous changes, osteomyelitis Subjective: No new changes Review of Systems General: As per HPI Eyes: Unremarkable ENT: As per HPI Gastrointestinal: Unremarkable Musculoskeletal: As per HPI Integumentary: As per HPI Physical Examination - Vital Signs Temperature: 98.0 F Blood Pressure: 167/90 Pulse: 90 Respirations: 16 Pulse Ox (%): 95 - Physical Exam General: Alert, In no apparent distress, Oriented x3 HEENT: PERRLA, EOMI Gastrointestinal: Soft and benign Integumentary: Cyanosis (left 4th toe), Diabetic ulcer (infected over left foot and base of 4th toe) Neurological: Normal speech - Studies Microbiology Data (last 24 hrs): 05/28/17 20:30 Wound - Right Toe Gram Stain - Final 05/28/17 20:30 Wound - Right Toe Culture & Sensitivity - Final Streptococcus Agalactiae H Medications List Reviewed: Yes Assessment And Plan - Plan I&D 4ht toe and foot abscess with debridement. BAR fully explained to patient again including also non healinf wound and need for amputation.
--- NOTE | 2017-06-01 14:22 | OP ---
Date of Procedure: 06/01/2017 Surgeon: Yaniv Gastelum MD Preoperative Diagnosis: Gangrenous diabetic ulcer, right fourth toe with foot cellulitis and osteomy elitis. Postoperative Diagnosis: Gangrenous diabetic ulcer, right fourth toe with foot cellulitis and osteom yelitis. Procedure: Excisional debridement of necrotic infected diabetic ulcer, left fourth toe with drainage of an abscess, fourth toe. Specimen: Necrotic tissue and culture. Anesthesia: General. Findings: The patient has necrotic ulcer on the toe area. At least 2/3rd of that toe is ischemic wi th necrotic tissue present and gangrenous changes of the soft tissue. The patient also has osteomyel itis. Indications: This is the case of a 51-year-old patient, who came to us with diabetes, cellulitis of the right foot and leg plus ischemic right fourth toe with necrotic diabetic ulcer in that area. The patient was diagnosed with also osteomyelitis of the bone. It was explained to him the need for halima ridement of that area. He has been on antibiotics for few days already. He also on understands we m ight not be able to save that toe. He does not want to have an amputation at this moment. He gave h is consent for debridement of this area, although he understand that at one point, if this does not i mprove, he is going to have to let us remove the toe. The benefits, alternatives, and risks of debri clyde of the necrotic and gangrenous right toe ulcer with drainage of an abscess were fully explaine d to the patient, which include but are not limited to infection, bleeding, damage to adjacent struct ures, anesthesia complication, nonhealing wound, [place], and even . He also understands this may no t relieve any symptoms. He might need more than one surgical intervention. He also understands he m ay need an amputation of that toe. Procedure In Detail: The patient was brought to the operating room and placed in the supine position . The area was marked by me and the patient in the holding room. A time-out was called. Right foot was prepped and draped in sterile fashion. The patient has ischemic changes. When we cultures the skin, we noted this gangrene of the soft tissue of the toe area involving also the lateral and inferi or proximal ulcer and involved part of the foot and part of the toe. In that area, necrotic tissue w as removed finding an abscess underneath that had open loculations and explored and irrigated for cul ture. All necrotic tissue that looked completely gone was removed leaving some soft tissue in that a dain, although I am not sure exactly if it is enough to save that toe. Debridement was done. The are a was irrigated. The patient was covered with Santyl and sterile dressings. The patient was sent to recovery in stable condition. LUCI/SUKHI Voice ID: [id number] Report ID: [id number]
[2017-06-01] MEDS: INSULIN DETEMIR 100 UNIT/1 ML INSULIN SQ SCH (16:33)
--- NOTE | 2017-06-01 18:15 | P.PN ---
Subjective Date of Service: 06/01/17 Chief Complaint: diabetic foot necrotic ulcer with toe gangreneous changes, osteomyelitis Examined at bedside with RN. Chart reviewed. Case discussed with general surgery. At this time patient states that he feels better. Cellulitis of the leg improving on IV antibiotics. Culture + for Group A strep. S/p I&D Review of Systems 10-point ROS is otherwise unremarkable Physical Examination - Vital Signs Temperature: 97.8 F Blood Pressure: 152/81 Pulse: 80 Respirations: 16 Pulse Ox (%): 99 - Physical Exam General: Alert, In no apparent distress, Oriented x3 HEENT: Atraumatic, PERRLA, EOMI Neck: Supple, JVD not distended Respiratory: Clear to auscultation bilaterally, Normal air movement Cardiovascular: Regular rate/rhythm, Normal S1 S2 Gastrointestinal: Normal bowel sounds, No tenderness Musculoskeletal: Tenderness Integumentary: No rashes Neurological: Normal speech, Normal tone, Normal affect Lymphatics: No axilla or inguinal lymphadenopathy - Studies Medications List Reviewed: Yes Assessment & Plan - Problems (Diagnosis) (1) Cellulitis Onset Date: 05/29/17 Current Visit: Yes Status: Acute Plan: cellulites of the right lower extremity. Improving today -IV abx and wound care -Xray of the foot + for osteomylitis -Dr Steward and Dr Gastelum consulted. -S/P Surgical Debriement today -Culture pending. Growing Strep Agalatice -Pending LTAC placement. Qualifiers: Site of cellulitis: extremity Site of cellulitis of extremity: lower extremity Laterality: left Qualified Code(s): L03.116 - Cellulitis of left lower limb (2) Diabetic foot ulcer Onset Date: 05/29/17 Current Visit: Yes Status: Acute Plan: See # 1 Qualifiers: Diabetic foot ulcer location: toe Diabetes mellitus type: type 2 Laterality: left Non-pressure ulcer stage: with bone involvement without evidence of necrosis Qualified Code(s): E11.621 - Type 2 diabetes mellitus with foot ulcer; L97.526 - Non-pressure chronic ulcer of other part of left foot with bone involvement without evidence of necrosis; L97.526 - Non-pressure chronic ulcer of other part of left foot with bone involvement without evidence of necrosis; L97.526 - Non-pressure chronic ulcer of other part of left foot with bone involvement without evidence of necrosis; L97.526 - Non-pressure chronic ulcer of other part of left foot with bone involvement without evidence of necrosis (3) GERD (gastroesophageal reflux disease) Onset Date: 05/29/17 Current Visit: Yes Status: Chronic Qualifiers: Esophagitis presence: without esophagitis Qualified Code(s): K21.9 - Gastro -esophageal reflux disease without esophagitis (4) Obesity (BMI 30-39.9) Onset Date: 05/29/17 Current Visit: Yes Status: Chronic (5) Diabetes mellitus Onset Date: 09/24/15 Current Visit: No Status: Chronic Qualifiers: Diabetes mellitus type: type 2 Diabetes mellitus skilled nursing insulin use: with local company intermodal truck driver use Diabetes mellitus complication status: with circulatory complication Diabetes mellitus complication detail: with peripheral angiopathy without gangrene Qualified Code(s): E11.51 - Type 2 diabetes mellitus with diabetic peripheral angiopathy without gangrene; Z79.4 - senior living (current) use of insulin; Z79.4 - senior living (current) use of insulin; Z79.4 - technician terminal and repeater (current) use of insulin; Z79.4 - senior living (current) use of insulin (6) Hyperlipidemia Onset Date: 09/24/15 Current Visit: No Status: Chronic Qualifiers: Hyperlipidemia type: mixed hyperlipidemia Qualified Code(s): E78.2 - Mixed hyperlipidemia
[2017-06-01] MEDS: ATORVASTATIN 20 MG TAB PO SCH (22:28)
[2017-06-01] MEDS: ROSUVASTATIN 10 MG TAB PO SCH (22:29)
[2017-06-02] MEDS: INSULIN DETEMIR 100 UNIT/1 ML INSULIN SQ SCH ×2 (01:24→08:48)
[2017-06-02] MEDS: PIPER/TAZO/NS 3.375gm 3.375 GM/100 ML BAG IV SCH ×2 (01:24→08:51)
[2017-06-02] MEDS: NA CHLORIDE 0.9% 1,000 ML IV SCH ×2 (03:45→13:36)
[2017-06-02 06:40] LABS: Absolute Lymphocytes (CBC) 1.2 K/uL (0.7-4.9); Absolute Monocytes 0.6 K/uL (0.1-1.3); Absolute Neutrophil 4.7 K/uL (1.8-8.0); Basophils % 1.1 % (0-1.3); Eosinophils % 2.8 % (0-4.4); Hematocrit 36.3 % (39.6-49.0); MCH 28.4 pg (27.0-35.0); MCV 86.2 fL (80-100); MPV 9.7 fL (7.6-11.3); Monocytes % 9.3 % (3.3-12.3); RBC Red Blood Cell Count 4.22 M/uL (4.33-5.43)
[2017-06-02 06:43] VITALS: BMI 36.3
[2017-06-02 07:12] LABS: Albumin 2.5 g/dL (3.2-5.5); Potassium 4.3 mEq/L (3.6-5.0); Protein, Total 6.2 g/dL (6.0-8.3)
[2017-06-02 07:16] LABS: Bilirubin Total 0.9 mg/dL (0.3-1.2)
[2017-06-02] MEDS: METOPROLOL TAR 25 MG TAB PO SCH (08:49)
[2017-06-02] MEDS: PANTOPRAZOLE 40MG TABLET PO SCH (08:49)
[2017-06-02] MEDS: SUCRALFATE 1 GM TABLET PO SCH ×2 (08:49→13:36)
[2017-06-02] MEDS: ASPIRIN 81 MG CHEWABLE TABLET PO SCH (08:50)
[2017-06-02] MEDS: VANCOMYCIN 2 GM in NA CHLORIDE 0.9% 500 ML IVPB SCH (08:51)
[2017-06-02 11:59] VITALS: BP 146/83; TEMP 97.9
--- NOTE | 2017-06-02 14:58 | P.DS ---
Admission Date: 05/28/17 Discharge Date: 06/02/17 Disposition: ROUTINE DISCHARGE Discharge Condition: GOOD Reason for Admission: diabetic foot necrotic ulcer with toe gangreneous changes , osteomyelitis Consultations: ID Gen Surgery Procedures: I&D - Problems (1) Cellulitis Onset Date: 05/29/17 Current Visit: Yes Status: Acute Qualifiers: Site of cellulitis: extremity Site of cellulitis of extremity: lower extremity Laterality: left Qualified Code(s): L03.116 - Cellulitis of left lower limb (2) Diabetic foot ulcer Onset Date: 05/29/17 Current Visit: Yes Status: Acute Qualifiers: Diabetic foot ulcer location: toe Diabetes mellitus type: type 2 Laterality: left Non-pressure ulcer stage: with bone involvement without evidence of necrosis Qualified Code(s): E11.621 - Type 2 diabetes mellitus with foot ulcer; L97.526 - Non-pressure chronic ulcer of other part of left foot with bone involvement without evidence of necrosis; L97.526 - Non-pressure chronic ulcer of other part of left foot with bone involvement without evidence of necrosis; L97.526 - Non-pressure chronic ulcer of other part of left foot with bone involvement without evidence of necrosis; L97.526 - Non-pressure chronic ulcer of other part of left foot with bone involvement without evidence of necrosis (3) GERD (gastroesophageal reflux disease) Onset Date: 05/29/17 Current Visit: Yes Status: Chronic Qualifiers: Esophagitis presence: without esophagitis Qualified Code(s): K21.9 - Gastro -esophageal reflux disease without esophagitis (4) Obesity (BMI 30-39.9) Onset Date: 05/29/17 Current Visit: Yes Status: Chronic (5) Diabetes mellitus Onset Date: 09/24/15 Current Visit: No Status: Chronic Qualifiers: Diabetes mellitus type: type 2 Diabetes mellitus mcfp insulin use: with mcfp use Diabetes mellitus complication status: with circulatory complication Diabetes mellitus complication detail: with peripheral angiopathy without gangrene Qualified Code(s): E11.51 - Type 2 diabetes mellitus with diabetic peripheral angiopathy without gangrene; Z79.4 - intermediate card tender (current) use of insulin; Z79.4 - intermediate card tender (current) use of insulin; Z79.4 - intermediate card tender (current) use of insulin; Z79.4 - shelter (current) use of insulin (6) Hyperlipidemia Onset Date: 09/24/15 Current Visit: No Status: Chronic Qualifiers: Hyperlipidemia type: mixed hyperlipidemia Qualified Code(s): E78.2 - Mixed hyperlipidemia Brief History of Present Illness: Patient is a 51-year-old gentleman with a history of diabetes times 20 years. He takes long-acting insulin to control his blood sugars. He had been working in [employer] stubbed his toe. He develop some erythema in the toe initially. This morning he looked status toe in and had been discolored. There was a bluish hue to it. Patient went to see his PCP who prescribed antibiotics. However, his concern was his toe was getting worse and he has streaking up his right leg so he came to the emergency room. In the emergency room he was evaluated. He has a normal white count with no fevers. However he does have streaking up his right salvador. He will be admitted to the hospital for MRI of the foot. If this is negative she should be able to go home. He does have significant diabetic neuropathy on exam. He will need close follow-up. Hospital Course: During the hospital stay patient remained stable Patient was initially admitted to the hospital for cellulitis of the right toe. Was found to have crushing injury. General surgery was consulted and patient was started on empiric antibiotics wound cultures were collected before the antibiotics were started. Patient's culture was positive for strep Agalactice and general surgery did an I and D in the OR. At that point, the recommendation was made to continue patient on IV antibiotics. MRI was done which was consistent with osteomyelitis this patient was to be on IV antibiotics for 6 weeks to treat the bone infection. Patient was then transferred over to a long-term acute care facility at [facility]. Vital Signs/Physical Exam: Temp Pulse Resp BP Pulse Ox 97.9 F 67 18 146/83 H 95 06/02/17 11:59 06/02/17 11:59 06/02/17 11:59 06/02/17 11:59 06/02/17 11:59 General: Alert, In no apparent distress HEENT: Atraumatic, PERRLA, EOMI Neck: Supple, JVD not distended Respiratory: Clear to auscultation bilaterally, Normal air movement Cardiovascular: Regular rate/rhythm, Normal S1 S2 Gastrointestinal: Normal bowel sounds, No tenderness Musculoskeletal: No tenderness Integumentary: No rashes Neurological: Normal speech, Normal tone, Normal affect Lymphatics: No axilla or inguinal lymphadenopathy Laboratory Data at Discharge: WBC 6.8 K/uL (4.3-10.9) 06/02/17 05:36 Hgb 12.0 g/dL (13.6-17.9) L 06/02/17 05:36 Hct 36.3 % (39.6-49.0) L 06/02/17 05:36 Plt Count 254 K/uL (152-406) 06/02/17 05:36 PT 12.4 SECONDS (9.5-12.5) 05/28/17 20:30 INR 1.05 05/28/17 20:30 APTT 27.1 SECONDS (24.3-36.9) 05/28/17 20:30 Sodium 139 mEq/L (135-145) 06/02/17 05:36 Potassium 4.3 mEq/L (3.6-5.0) 06/02/17 05:36 BUN 10 mg/dL (6-20) 06/02/17 05:36 Creatinine 1.09 mg/dL (0.61-1.24) 06/02/17 05:36 Glucose 143 mg/dL (65-120) H 06/02/17 05:36 Magnesium 1.7 mg/dL (1.8-2.5) L 05/28/17 20:30 Total Bilirubin 0.9 mg/dL (0.3-1.2) 06/02/17 05:36 AST 16 IU/L (10-42) 06/02/17 05:36 ALT 15 IU/L (10-60) 06/02/17 05:36 Alkaline Phosphatase 56 IU/L (42-121) 06/02/17 05:36 Triglycerides 75 mg/dL (35-160) 05/29/17 04:45 Cholesterol 175 mg/dL (<200) 05/29/17 04:45 HDL Cholesterol 45 mg/dL (27-67) 05/29/17 04:45 Cholesterol/HDL Ratio 3.89 05/29/17 04:45 Home Medications: Insulin -Regular Human [Novolin -R*] 10 unit SQ AC 05/29/17 Insulin Detemir [Levemir] 40 unit SQ BEDTIME 05/29/17 Metformin HCl [Glucophage] 1,000 mg PO BID 05/29/17 Polyethylene Glycol 3350 [Miralax] 1 packet PO SEECOM 05/29/17 Rosuvastatin [Crestor*] 1 tab PO BEDTIME 05/29/17 Vancomycin/0.9 % Sod Chloride [Vanco 2 Gram/250 ml-0.9% NaCl] 2 gm IV Q12H #28 plast..bag 06/02/17 New Medications: Vancomycin/0.9 % Sod Chloride [Vanco 2 Gram/250 ml-0.9% NaCl] 2 gm IV Q12H #28 plast..bag Diet: Regular Activity: Ad sam Followup: Robin Steward MD [ACTIVE - CAN ADMIT] - 1-2 Weeks Yaniv Gastelum MD [ACTIVE - CAN ADMIT] - 1-2 Weeks
[2017-06-02] MEDS: COLLAGENASE 30 GM OINTMENT TOP SCH (15:06)
[2017-06-02 15:56] VITALS: O2SAT 95
--- NOTE | 2017-06-02 17:46 | CON ---
History Of Present Illness: This is a 51-year-old male, coming in with significant history of diabet es mellitus for 20 years, coming in with right foot gas gangrenous changes to the fourth toe with MRI showing osteomyelitis in the proximal and mid phalanx and distal phalanx area. The patient is curre ntly being treated with IV antibiotic including vancomycin. Allergies: LISINOPRIL. Medications: The patient is currently on vancomycin and Zosyn. See MARs for other medication. Past Medical History: Diabetes mellitus, gastroparesis, sleep apnea, hyperlipidemia, hypertension, p eptic ulcer disease, esophagitis. Past Surgical History: Right foot fourth toe debridement. Family History: Diabetes mellitus and hypertension. Social History: Nonsmoker, nondrinker. Review of Systems: A 10-point review was performed. Physical Examination: General: This is a 51-year-old male, lying in bed, not in any acute cardiopulmonary distress. Vital Signs: Temperature 97.9, pulse 67, respiration 18, blood pressure 146/83. HEENT: Unremarkable. Neck: Supple. Lungs: Basal crackles. Heart: S1, S2. Regular. Abdomen: Soft, nontender. Bowel sounds positive. Extremity: Right foot with fourth toe gangrenous changes noted to the mid toe section. Diagnostic Data: MRI showing distal toe osteomyelitis, status post debridement. Laboratory Data: Shows WBC 6.8, hemoglobin 12, platelets 254. Chemistry shows sodium 139, potassium 4.3, chloride 106, bicarb 26, BUN 10, creatinine 1.09. Glucose is 143. Hemoglobin A1c 12.4. Album in is 2.5. Assessment And Plan: Right foot fourth toe osteomyelitis and gangrenous changes to the distal toe, d iabetic foot ulcer, uncontrolled diabetes mellitus, hypertension. Continue antibiotic including vanc omycin and Zosyn. We will follow the patient closely. Thank you Dr. Gustafson for consult. NF/MODL Voice ID: [id number] Report ID: [id number]
== END 2017-06-02 17:36 | DRG 264 ==
LOC: ER 20:00 → ERHOLD 22:47 → 4TH 05-29 00:12
PROVIDERS: ADMIT Hospitalist; ATTEND Hospitalist
PROC: 0JBQ0ZZ Excision of Right Foot Subcutaneous Tissue and Fascia, Open Approach (ICD-10-PCS; principal; 2017-06-01 10:45)
DX: E11.52 Type 2 diabetes mellitus with diabetic peripheral angiopathy with gangrene (principal); L03.115 Cellulitis of right lower limb; M86.171 Other acute osteomyelitis, right ankle and foot; I96 Gangrene, not elsewhere classified; E11.40 Type 2 diabetes mellitus with diabetic neuropathy, unspecified; E11.621 Type 2 diabetes mellitus with foot ulcer; I10 Essential (primary) hypertension; E78.00 Pure hypercholesterolemia, unspecified; E66.9 Obesity, unspecified; K21.9 Gastro-esophageal reflux disease without esophagitis; E11.69 Type 2 diabetes mellitus with other specified complication; E78.2 Mixed hyperlipidemia; E78.5 Hyperlipidemia, unspecified; G47.30 Sleep apnea, unspecified
CPT/HCPCS: 36415; 80048; 80053; 80061; 80076; 80202; 81003; 81015; 82565; 82962; 83036; 83735; 85025; 85610; 85730; 87040; 87070; 87075; 87077; 87086; 87088; 87186; 87205; 88304; 93005; 93926; 96365; 96366; 96375; 99285; C9113; J2250; J2270; J2405; J2543; J3010; J3370; J3590; J7030

== ENCOUNTER 2017-06-29 09:37 | Day surgery (SDC) | payer OTHER ==
--- OUTSIDE RECORDS SUMMARY | 2017-06-29 09:39 | XMS REPORT | Clinical Summary ---
:1965 Author Organization [facility] Address [address] [place] [address] Care Team Providers Name Role Phone Asked, [...] Type Specialty Care Team Description 11/06/2016 - [facility] to [facility] (Primary Dx); 11/07/2016 Encounter Medicine MD Maite Gastroenteritis after 06/28/2016 Social History Tobacco Use Types Packs/Day Years [...] 99 mg/dL Comment: RN Notified Meter ID: [id number] Negotiator: Ti Peng Specimen Performing Laboratory [facility] DEPARTMENT OF PATHOLOGY AND GENOMIC MEDICINE [address] [place] [address] Salmonella/shigella culture (11/07/2016 9:00 AM) Component Value Ref Range Salmonella/shigella culture isolate No Aeromonas isolated Comment: Specimen Information Specimen Source: Stool Specimen Site: Per rectum Specimen Performing Laboratory Stool - Per rectum [facility] DEPARTMENT OF PATHOLOGY AND GENOMIC MEDICINE [address] [place] [address] Gastrointestinal panel (11/07/2016 9:00 AM) Component Value [...] Specimen Performing Laboratory Stool - Per rectum [facility] DEPARTMENT OF PATHOLOGY AND GENOMIC MEDICINE [address] [place] [address] Estimated GFR (11/07/2016 5:20 AM) Component Value [...] and Americans. Specimen Performing Laboratory Plasma specimen [facility] DEPARTMENT PATHOLOGY AND [address] [address] CBC hemogram (11/07/2016 5:20 AM) Component Value [...] 0.00 /100 WBC Specimen Performing Laboratory Blood [facility] DEPARTMENT PATHOLOGY AND [address] [address] Magnesium level (11/07/2016 5:20 AM) Component Value Ref Range Magnesium 2.1 1.6 - 2.6 mg/dL Specimen Performing Laboratory Plasma specimen [facility] PATHOLOGY [address] [address] Comprehensive metabolic panel (11/07/2016 5:20 AM) Component [...] 1.2 mg/dL Specimen Performing Laboratory Plasma specimen [facility] DEPARTMENT OF PATHOLOGY AND GENOMIC MEDICINE [address] [place] [address] after 06/28/2016 Insurance Payer Benefit Plan / Group Subscriber ID Type Phone Address AETNA AETNA HMO,POS,EPO, MC/EC xxxxxxxxx HMO Work: [id number] [facility] [phone] [place] [id number] Home: [phone] [facility]
[2017-06-29] MEDS ORDERED: NA CHLORIDE 0.9% 1,000 ML ONE ×2 (09:49→11:55)
[2017-06-29 10:19] LABS: Absolute Lymphocytes (CBC) 1.8 K/uL (0.7-4.9); Absolute Monocytes 0.6 K/uL (0.1-1.3); Basophils % 1.3 % (0-1.3); Eosinophils % 4.4 % (0-4.4); Hematocrit 37.7 % (39.6-49.0); Lymphocytes % 26.9 % (15.3-44.8); MCH 27.9 pg (27.0-35.0); MCV 85.9 fL (80-100); MPV 9.3 fL (7.6-11.3); Monocytes % 9.2 % (3.3-12.3); RBC Red Blood Cell Count 4.39 M/uL (4.33-5.43)
[2017-06-29] MEDS ORDERED: PROPOFOL 200 MG/20 ML VIAL IV ONE ×2 (10:19→11:39)
[2017-06-29] MEDS ORDERED: LIDOCAINE 1% MPF 5 ML VIAL ONE (10:20)
[2017-06-29] MEDS ORDERED: ONDANSETRON 4 MG/2 ML VIAL ONE ×2 (10:21→14:06)
[2017-06-29] MEDS ORDERED: FENTANYL CITR 100 MCG/2 ML ONE (10:21)
[2017-06-29] MEDS ORDERED: MIDAZOLAM HCL 2 MG/2 ML INJ ONE (10:22)
--- NOTE | 2017-06-29 10:24 | RAD REPORT ---
EXAM DESCRIPTION: RAD - Chest Pa And Lat (2 Views) - 06/29/2017 10:17 am CLINICAL HISTORY: Abdominal pain, dry cough COMPARISON: 03/20/2016, 01/04/2010 FINDINGS: The lungs are clear. The heart is normal in size. No displaced fractures. IMPRESSION: No acute or concerning finding suspected.
[2017-06-29 10:33] LABS: Potassium 4.6 mEq/L (3.6-5.0)
[2017-06-29] MEDS ORDERED: CIPROFLOXACIN 400mg IV 400 MG/200 ML BAG IV ONE (10:49)
[2017-06-29] MEDS ORDERED: ROCURONIUM 50 MG/5 ML VIAL IV ONE (11:04)
[2017-06-29] MEDS ORDERED: GLYCOPYRROLATE 0.2 MG/ML SYR ONE ×2 (11:31)
[2017-06-29] MEDS ORDERED: EPHEDRINE SULF 50 MG/5 ML SYR ONE (11:33)
[2017-06-29] MEDS ORDERED: NEOSTIGMINE 1 MG/ML -5 ML SYRINGE ONE (11:33)
--- NOTE | 2017-06-29 11:44 | P.BOP ---
Preoperative diagnosis: gangrene right 4th toe Postoperative diagnosis: same Primary procedure: Amputation of gangrene right 4th toe Entry Level Administrative Assistant: VESNA VICTOR Estimated blood loss: <5cc Specimen: toe Findings: as above Anesthesia: General Complications: None Transferred to: Recovery Room Condition: Good
[2017-06-29] MEDS: MEPERIDINE HCL 25 MG/0.5 ML ONE ×2 (11:57→12:02)
[2017-06-29] MEDS ORDERED: MEPERIDINE HCL 25 MG/0.5 ML ONE ×2 (12:07→12:17)
--- NOTE | 2017-06-29 12:10 | EKG ---
Test Date: 2017-06-29 Test Time: 10:27:48 Sharepoint Designer Developer: JUAN JOSÉ MEASUREMENT RESULTS: Intervals: Rate: 70 IN: 152 QRSD: 144 QT: 464 QTc: [address] [facility]: P: 35 IN: 152 QRS: -46 T: -5 INTERPRETIVE STATEMENTS: Normal sinus rhythm Right bundle branch block Left axis Abnormal ECG Compared to ECG 05/28/2017 20:53:43 Sinus tachycardia no longer present Electronically Signed On 06-29-17 12:09:29 CDT by Trevon Malone
[2017-06-29] MEDS ORDERED: CODEINE 30MG/APAP 300MG TAB ONE (13:04)
[2017-06-29 13:34] VITALS: BP 170/84; TEMP 97.5; O2SAT 98
--- NOTE | 2017-06-29 22:28 | OP ---
Date of Procedure: 06/29/2017 Surgeon: Yaniv Gastelum MD Clerical Manager: ROS [place] Preoperative Diagnosis: Gangrene, right fourth toe. Postoperative Diagnosis: Gangrene, right fourth toe. Procedure: Amputation of the gangrenous right fourth toe. Estimated Blood Loss: Less than 5 cc. Specimen: Toe. Finding: As above. Anesthesia: General. Indications: This is a case of a 51-year-old patient with osteomyelitis and gangrene of the right fo urth toe. The patient was on antibiotics for the last several weeks since the patient has previous c ellulitis of the right foot. The patient wants the toe removed. It is gangrenous. It is dry, mummi fied. Benefits, alternatives, and risks of amputation of right fourth toe fully explained to the pat ient, which include but are not limited to infection, bleeding, damage to adjacent structures , anest hesia complication, nonhealing wound, SC, or even . He also understands this may not relieve an y symptoms. He might need more than one surgical intervention. He may require wound care. He under stands the importance of diabetes control and diet control, otherwise this will not heal. If that is the case, then we will move to a wound VAC. In the meantime, we are going to hold the dressings wit h just triple antibiotics. Procedure In Detail: The patient was brought to the operating room, placed in supine position. Anes thesia was done without complication. The right foot was prepped and draped in a sterile fashion. A time-out was called. After that an amputation was done at right fourth toe by incising the skin. I ncision was carried down all the way down to bone and tissue. The joint between the metatarsophalang eal joint was found. Toe was amputated. The cartilage of the distal metatarsal region was removed a nd cauterized. Tendons were allowed to retract after cutting them. The area was profusely irrigated . Then it was closed with a mattress suture loosely with a 2-0 nylon. This site was left to the ruddy e to drain. The patient tolerated the procedure well. The patient was sent to recovery in stable co ndition. DISCHARGE NOTE Diagnosis: Gangrene, right fourth toe. Procedure: Amputation of gangrene, right fourth toe Home. Disposition: Home. Activity: As tolerated. No heavy lifting. Followup: Follow up in my office in 1 week. Call for appointment at [phone]. Keep the area dry fo r 48 hours. Keep area dry and clean until next visit. In 48 hours, may remove gauze, put some tripl e antibiotics and re-place the gauze. Discharge Medications: The patient is already on Levaquin. We are going to give him Tylenol No. 3 f or pain. LUCI/SUKHI Voice ID: [id number] Report ID: [id number]
== END 2017-06-29 14:26 | disposition home or self-care (01) ==
LOC: OR 09:37
PROVIDERS: ATTEND Surgery
PROC: 0Y6V0Z0 Detachment at Right 4th Toe, Complete, Open Approach (ICD-10-PCS; principal; 2017-06-29 11:00)
DX: E11.52 Type 2 diabetes mellitus with diabetic peripheral angiopathy with gangrene (principal); I96 Gangrene, not elsewhere classified; L03.115 Cellulitis of right lower limb; Z79.4 Long term (current) use of insulin; I10 Essential (primary) hypertension; E66.9 Obesity, unspecified; Z88.8 Allergy status to other drugs, medicaments and biological substances; Z83.3 Family history of diabetes mellitus
CPT/HCPCS: 36415; 71046; 80048; 82962; 85025; 88305; 88311; 93005; J0744; J2175; J2250; J2405; J2710; J3010; J7030

== ENCOUNTER 2018-04-28 09:38 | Emergency (ER) | payer OTHER ==
--- OUTSIDE RECORDS SUMMARY | 2018-04-28 10:08 | XMS REPORT ---
:1965 [facility] Address [address] [place] [address] Dr. Nnun [address] [place] [id number] Care Team Providers Name Role Phone Unavailable Unavailable Unavailable Problems This patient has no known problems. Allergies, Adverse Reactions, Alerts This patient has no known allergies or adverse reactions. Medications This patient has no known medications.
--- OUTSIDE RECORDS SUMMARY | 2018-04-28 10:08 | XMS REPORT | Clinical Summary ---
:1965 Author Organization [facility] Address [address] [place] [address] Care Team Providers Name Role Phone Asked, No Pcp Primary Care Provider Unavailable Allergies Active Allergy Reactions Severity Noted Date Comments Lisinopril Swelling 01/11/2018 Medications Medication Sig Dispensed Refills Start Date End Date Status glimepiride Take 4 mg by 0 Active (AMARYL) 4 MG mouth 2 (two) tablet times a day with meals. rosuvastatin Take 40 mg by 0 Active (CRESTOR) 40 MG mouth nightly. tablet insulin detemir Inject 50 Units 0 Active (LEVEMIR) 100 under the skin unit/mL injection nightly. insulin lispro Inject 10 Units 0 Active (HumaLOG) 100 under the skin 3 unit/mL injection (three) times a day before meals. aspirin (ECOTRIN) Take 81 mg by 0 Active 81 MG enteric mouth daily. coated tablet ondansetron Take 4 mg by 0 Active (ZOFRAN) 4 MG mouth every 4 tablet (four) hours as needed for nausea or vomiting (Every 4-6 hours as needed). calcium carbonate Chew 3-4 tablets 0 Active (TUMS) 200 mg daily as needed calcium (500 mg) for indigestion chewable tablet or heartburn. ticagrelor Take 90 mg by 0 Active (BRILINTA) 90 mg mouth 2 (two) tablet times a day. furosemide (LASIX) Take 40 mg by 0 Active 40 mg tablet mouth 2 (two) times a day. metFORMIN Take 1,000 mg by 0 Active (GLUCOPHAGE) 1,000 mouth 2 (two) mg tablet times a day with meals. metFORMIN Take 1,000 mg by 0 Discontinued (GLUCOPHAGE) 1,000 mouth 2 (two) 8 mg tablet times a day with meals. lisinopril Take 10 mg by 0 Discontinued (PRINIVIL,ZESTRIL) mouth daily. 8 10 mg tablet carvedilol (COREG) Take 25 mg by 0 Discontinued 25 MG tablet mouth 2 (two) 8 times a day. carvedilol (COREG) Take 1 tablet 60 tablet 0 01/19/2018 3.125 MG tablet (3.125 mg total) 8 by mouth 2 (two) times a day for 30 days. furosemide (LASIX) Take 1 tablet (40 60 tablet 0 01/19/2018 40 mg tablet mg total) by 8 mouth 2 (two) times a day for 30 days. isosorbide Take 1 tablet (10 90 tablet 0 01/19/2018 dinitrate mg total) by 8 (ISORDIL) 10 MG mouth 3 (three) tablet times a day for 30 days. ticagrelor Take 1 tablet (90 60 tablet 0 01/19/2018 (BRILINTA) 90 mg mg total) by 8 tablet mouth 2 (two) times a day for 30 days. meclizine Take 1 tablet (25 20 tablet 0 04/11/2018 (ANTIVERT) 25 mg mg total) by 9 tablet mouth 3 (three) times a day as needed for dizziness for up to 10 days. Active Problems Problem Noted Date Acute vestibular syndrome 04/09/2018 New onset of congestive heart failure 01/11/2018 Gastroenteritis 11/07/2016 Encounters Date Type Specialty Care Team Description 04/09/2018 - Emergency General Internal Trevon Mariano Acute vestibular syndrome (Primary Dx); 04/11/2018 Paulina Grijalva MD Dyspepsia Rob Matamoros MD 01/18/2018 Surgery Procedural Sona Gallego intracoronary Cardiology MD Paul stent placement w angioplasty single major artery or branch [65738 (CPT)] 01/13/2018 Surgery Procedural Sona Gallego left heart cath w Cardiology MD Paul lv gram cors [74524 (CPT)] 01/11/2018 - Hospital Encounter General Internal Matador, New onset of congestive heart failure (HCC) (Primary Dx); 01/19/2018 Medicine Derik Boyd MD Acute pulmonary edema (HCC) Kemar Rowan MD Li, Wang, MD Khemka, Sanjay, MD after 04/27/2017 Immunizations Name Dates Previously Given Next Due FLUCELVAX QUAD PF (0.5mL syringe) 01/19/2018 Pneumococcal Polysaccharide 01/19/2018 (Deferred: ) Family History Medical History Relation Name Comments Diabetes Brother Heart disease Brother Diabetes Father Hypertension Mother Relation Name Status Comments Brother Father Mother Social History Tobacco Use Types Packs/Day Years Used Date Never Smoker Alcohol Use Drinks/Week oz/Week Comments No Sex Assigned at Date Recorded Not on file Job Start Date Occupation Industry Not on file Not on file Not on file Travel History Travel Start Travel End No recent travel history available. Last Filed Vital Signs Vital Sign Reading Time Taken Blood Pressure 137/61 04/11/2018 11:49 AM TALENT DEVELOPMENT COORDINATOR Pulse 79 04/11/2018 11:49 AM TALENT DEVELOPMENT COORDINATOR Temperature 36.9 C (98.5 F) 04/11/2018 11:49 AM TALENT DEVELOPMENT COORDINATOR Respiratory Rate 18 04/11/2018 11:49 AM TALENT DEVELOPMENT COORDINATOR Oxygen Saturation 96% 04/11/2018 11:49 AM TALENT DEVELOPMENT COORDINATOR Inhaled Oxygen Concentration - - Weight 127 kg (279 lb 14.4 oz) 04/11/2018 4:40 AM TALENT DEVELOPMENT COORDINATOR Height 182.9 cm (6') 04/09/2018 9:50 PM TALENT DEVELOPMENT COORDINATOR Body Mass Index 37.96 04/11/2018 4:40 AM TALENT DEVELOPMENT COORDINATOR Plan of Treatment Health Maintenance Due Date Last Done Comments COLON CANCER SCREENING 2016 SHINGLES VACCINES (1 of 2) 2016 INFLUENZA VACCINE Completed 01/19/2018 Implants Implanted Type Area Glazier Stained Glass Device Shelf Model / Identifier Expiration Serial / Lot Date Stent Coronary Syst Synergy (Mr) 3.00mm X 16mm - [id number] Coronary N/A: BSC 10/12/2019 [id number] / Implanted: Qty: 1 on 01/13/2018 by Paul Gallego MD Stents N/A INTERVENTIONAL / CARDIOLOGY [id number] Stent System 2.0 X 15mm Resolute [place] [facility] Coronary - [id number] Coronary N/A: [employer] - [id number] / Implanted: 01/18/2018 (Quantity not on file) Stents N/A VASCULAR / Stent System 2.25 X 15mmresolute [facility] Coronary - [id number] Coronary N/A: [employer] [place] - 05/25/2019 [id number] / Implanted: 01/18/2018 (Quantity not on file) Stents N/A CARDIAC RYHTYM / [id number] Procedures Procedure Name Priority Date/Time Associated Comments Diagnosis POC GLUCOSE Routine 04/11/2018 11:49 Results for this AM TALENT DEVELOPMENT COORDINATOR procedure are in the results section. URINALYSIS, AUTOMATED Routine 04/11/2018 11:15 Results for this WITH MICROSCOPY AM TALENT DEVELOPMENT COORDINATOR procedure are in the results section. ESTIMATED GFR Routine 04/11/2018 10:57 Results for this AM TALENT DEVELOPMENT COORDINATOR procedure are in the results section. BASIC METABOLIC PANEL Routine 04/11/2018 10:57 Results for this AM TALENT DEVELOPMENT COORDINATOR procedure are in the results section. POC GLUCOSE Routine 04/11/2018 7:46 Results for this AM TALENT DEVELOPMENT COORDINATOR procedure are in the results section. POC GLUCOSE Routine 04/10/2018 8:30 Results for this PM TALENT DEVELOPMENT COORDINATOR procedure are in the results section. POC GLUCOSE Routine 04/10/2018 5:52 Results for this PM TALENT DEVELOPMENT COORDINATOR procedure are in the results section. POC GLUCOSE Routine 04/10/2018 11:44 Results for this AM TALENT DEVELOPMENT COORDINATOR procedure are in the results section. MRI BRAIN WO CONTRAST STAT 04/10/2018 9:39 Results for this AM TALENT DEVELOPMENT COORDINATOR procedure are in the results section. POC GLUCOSE Routine 04/10/2018 8:03 Results for this AM TALENT DEVELOPMENT COORDINATOR procedure are in the results section. POC GLUCOSE Routine 04/10/2018 6:30 Results for this AM TALENT DEVELOPMENT COORDINATOR procedure are in the results section. POC GLUCOSE Routine 04/10/2018 5:49 Results for this AM TALENT DEVELOPMENT COORDINATOR procedure are in the results section. POC GLUCOSE Routine 04/09/2018 9:53 Results for this PM TALENT DEVELOPMENT COORDINATOR procedure are in the results section. CT HEAD WO CONTRAST STAT 04/09/2018 7:59 Results for this PM TALENT DEVELOPMENT COORDINATOR procedure are in the results section. ESTIMATED GFR STAT 04/09/2018 6:39 Results for this PM TALENT DEVELOPMENT COORDINATOR procedure are in the results section. BASIC METABOLIC PANEL STAT 04/09/2018 6:39 Results for this PM TALENT DEVELOPMENT COORDINATOR procedure are in the results section. TROPONIN STAT 04/09/2018 6:39 Results for this PM TALENT DEVELOPMENT COORDINATOR procedure are in the results section. HC COMPLETE BLD COUNT STAT 04/09/2018 6:39 Results for this W/AUTO DIFF PM TALENT DEVELOPMENT COORDINATOR procedure are in the results section. URINALYSIS SCREEN AND STAT 04/09/2018 5:40 Results for this MICROSCOPY, WITH REFLEX PM TALENT DEVELOPMENT COORDINATOR procedure are in TO CULTURE the results section. URINE CULTURE STAT 04/09/2018 5:40 Results for this PM TALENT DEVELOPMENT COORDINATOR procedure are in the results section. POC GLUCOSE Routine 01/19/2018 12:48 Results for this PM TALENT DEVELOPMENT COORDINATOR procedure are in the results section. POC GLUCOSE Routine 01/19/2018 7:49 Results for this AM TALENT DEVELOPMENT COORDINATOR procedure are in the results section. ESTIMATED GFR Routine 01/19/2018 5:48 Results for this AM TALENT DEVELOPMENT COORDINATOR procedure are in the results section. BASIC METABOLIC PANEL Routine 01/19/2018 5:48 Results for this AM TALENT DEVELOPMENT COORDINATOR procedure are in the results section. POC GLUCOSE Routine 01/18/2018 8:32 Results for this PM TALENT DEVELOPMENT COORDINATOR procedure are in the results section. POC GLUCOSE Routine 01/18/2018 5:20 Results for this PM TALENT DEVELOPMENT COORDINATOR procedure are in the results section. ECG 12-LEAD Routine 01/18/2018 1:06 Results for this PM TALENT DEVELOPMENT COORDINATOR procedure are in the results section. CV PCI STENT Routine 01/18/2018 12:36 Results for this PM TALENT DEVELOPMENT COORDINATOR procedure are in the results section. POC GLUCOSE Routine 01/18/2018 7:48 Results for this AM TALENT DEVELOPMENT COORDINATOR procedure are in the results section. PROTHROMBIN TIME WITH Routine 01/18/2018 5:35 Results for this INR AM TALENT DEVELOPMENT COORDINATOR procedure are in the results section. HC COMPLETE BLD COUNT Routine 01/18/2018 5:35 Results for this W/AUTO DIFF AM TALENT DEVELOPMENT COORDINATOR procedure are in the results section. ESTIMATED GFR Routine 01/18/2018 5:35 Results for this AM TALENT DEVELOPMENT COORDINATOR procedure are in the results section. BASIC METABOLIC PANEL Routine 01/18/2018 5:35 Results for this AM TALENT DEVELOPMENT COORDINATOR procedure are in the results section. POC GLUCOSE Routine 01/17/2018 8:44 Results for this PM TALENT DEVELOPMENT COORDINATOR procedure are in the results section. POC GLUCOSE Routine 01/17/2018 5:18 Results for this PM TALENT DEVELOPMENT COORDINATOR procedure are in the results section. POC GLUCOSE Routine 01/17/2018 12:12 Results for this PM TALENT DEVELOPMENT COORDINATOR procedure are in the results section. POC GLUCOSE Routine 01/17/2018 8:30 Results for this AM TALENT DEVELOPMENT COORDINATOR procedure are in the results section. ESTIMATED GFR Routine 01/17/2018 5:25 Results for this AM TALENT DEVELOPMENT COORDINATOR procedure are in the results section. BASIC METABOLIC PANEL Routine 01/17/2018 5:25 Results for this AM TALENT DEVELOPMENT COORDINATOR procedure are in the results section. POC GLUCOSE Routine 01/16/2018 8:42 Results for this PM CDT procedure are in the results section. POC GLUCOSE Routine 01/16/2018 5:03 Results for this PM CDT procedure are in the results section. POC GLUCOSE Routine 01/16/2018 11:30 Results for this AM CDT procedure are in the results section. POC GLUCOSE Routine 01/16/2018 7:20 Results for this AM CDT procedure are in the results section. ESTIMATED GFR Routine 01/16/2018 6:25 Results for this AM CDT procedure are in the results section. BASIC METABOLIC PANEL Routine 01/16/2018 6:25 Results for this AM CDT procedure are in the results section. POC GLUCOSE Routine 01/15/2018 9:49 Results for this PM CDT procedure are in the results section. POC GLUCOSE Routine 01/15/2018 5:58 Results for this PM CDT procedure are in the results section. POC GLUCOSE Routine 01/15/2018 5:24 Results for this PM CDT procedure are in the results section. POC GLUCOSE Routine 01/15/2018 3:13 Results for this PM CDT procedure are in the results section. POC GLUCOSE Routine 01/15/2018 11:53 Results for this AM CDT procedure are in the results section. POC GLUCOSE Routine 01/15/2018 11:13 Results for this AM CDT procedure are in the results section. POC GLUCOSE Routine 01/15/2018 8:03 Results for this AM CDT procedure are in the results section. ESTIMATED GFR Routine 01/15/2018 5:15 Results for this AM CDT procedure are in the results section. PROTHROMBIN TIME WITH Routine 01/15/2018 5:15 Results for this INR AM CDT procedure are in the results section. HEMOGLOBIN A1C Routine 01/15/2018 5:15 Results for this AM CDT procedure are in the results section. BASIC METABOLIC PANEL Routine 01/15/2018 5:15 Results for this AM CDT procedure are in the results section. HC COMPLETE BLD COUNT Routine 01/15/2018 5:15 Results for this W/AUTO DIFF AM CDT procedure are in the results section. US RENAL Routine 01/15/2018 12:00 Results for this AM CDT procedure are in the results section. POC GLUCOSE Routine 01/14/2018 9:31 Results for this PM CDT procedure are in the results section. URINALYSIS SCREEN AND Routine 01/14/2018 7:45 Results for this MICROSCOPY, WITH REFLEX PM CDT procedure are in TO CULTURE the results section. PROTEIN, URINE, RANDOM Routine 01/14/2018 7:45 Results for this PM CDT procedure are in the results section. CREATININE LEVEL, Routine 01/14/2018 7:45 Results for this URINE, RANDOM PM CDT procedure are in the results section. SODIUM LEVEL, URINE, Routine 01/14/2018 7:45 Results for this RANDOM PM CDT procedure are in the results section. URINE CULTURE Routine 01/14/2018 7:45 Results for this PM CDT procedure are in the results section. XR CHEST 2 VW Routine 01/14/2018 6:23 Results for this PM CDT procedure are in the results section. POC GLUCOSE Routine 01/14/2018 5:10 Results for this PM CDT procedure are in the results section. POC GLUCOSE Routine 01/14/2018 11:18 Results for this AM CDT procedure are in the results section. POC GLUCOSE Routine 01/14/2018 8:13 Results for this AM CDT procedure are in the results section. ESTIMATED GFR Routine 01/14/2018 6:08 Results for this AM CDT procedure are in the results section. BASIC METABOLIC PANEL Routine 01/14/2018 6:08 Results for this AM CDT procedure are in the results section. HC COMPLETE BLD COUNT Routine 01/14/2018 6:08 Results for this W/AUTO DIFF AM CDT procedure are in the results section. POC GLUCOSE Routine 01/13/2018 8:56 Results for this PM CDT procedure are in the results section. POC GLUCOSE Routine 01/13/2018 5:54 Results for this PM CDT procedure are in the results section. POC GLUCOSE Routine 01/13/2018 4:36 Results for this PM CDT procedure are in the results section. CV PCI STENT Routine 01/13/2018 4:19 Results for this PM CDT procedure are in the results section. CV LEFT HEART CATH LV Routine 01/13/2018 4:19 Results for this GRAM WITH CORS PM CDT procedure are in the results section. ECG 12-LEAD STAT 01/13/2018 4:16 Results for this PM CDT procedure are in the results section. POC GLUCOSE Routine 01/13/2018 7:42 Results for this AM CDT procedure are in the results section. PROTHROMBIN TIME WITH Routine 01/13/2018 6:00 Results for this INR AM CDT procedure are in the results section. ESTIMATED GFR Routine 01/13/2018 6:00 Results for this AM CDT procedure are in the results section. BASIC METABOLIC PANEL Routine 01/13/2018 6:00 Results for this AM CDT procedure are in the results section. HC COMPLETE BLD COUNT Routine 01/13/2018 6:00 Results for this W/AUTO DIFF AM CDT procedure are in the results section. POC GLUCOSE Routine 01/12/2018 8:48 Results for this PM CDT procedure are in the results section. POC GLUCOSE Routine 01/12/2018 5:01 Results for this PM CDT procedure are in the results section. POC GLUCOSE Routine 01/12/2018 11:22 Results for this AM CDT procedure are in the results section. POC GLUCOSE Routine 01/12/2018 7:51 Results for this AM CDT procedure are in the results section. ESTIMATED GFR Routine 01/12/2018 4:05 Results for this AM CDT procedure are in the results section. BASIC METABOLIC PANEL Routine 01/12/2018 4:05 Results for this AM CDT procedure are in the results section. HC COMPLETE BLD COUNT Routine 01/12/2018 4:05 Results for this W/AUTO DIFF AM CDT procedure are in the results section. ECG 12-LEAD Routine 01/11/2018 10:53 Results for this PM CDT procedure are in the results section. POC GLUCOSE Routine 01/11/2018 8:58 Results for this PM CDT procedure are in the results section. TROPONIN Timed 01/11/2018 6:55 Results for this PM CDT procedure are in the results section. POC GLUCOSE Routine 01/11/2018 5:00 Results for this PM CDT procedure are in the results section. ECHOCARDIOGRAM 2D Routine 01/11/2018 2:48 Results for this COMPLETE W MMODE PM CDT procedure are in SPECTRAL COLOR DOPPLER the results (24340) section. TROPONIN Timed 01/11/2018 1:45 Results for this PM CDT procedure are in the results section. CT ANGIOGRAM PE CHEST STAT 01/11/2018 12:24 Results for this PM CDT procedure are in the results section. XR CHEST 2 VW STAT 01/11/2018 11:20 Results for this AM CDT procedure are in the results section. ESTIMATED GFR STAT 01/11/2018 10:55 Results for this AM CDT procedure are in the results section. D-DIMER STAT 01/11/2018 10:55 Results for this AM CDT procedure are in the results section. B NATRIURETIC PEPTIDE STAT 01/11/2018 10:55 Results for this AM CDT procedure are in the results section. TROPONIN STAT 01/11/2018 10:55 Results for this AM CDT procedure are in the results section. COMPREHENSIVE METABOLIC STAT 01/11/2018 10:55 Results for this PANEL AM CDT procedure are in the results section. HC COMPLETE BLD COUNT STAT 01/11/2018 10:55 Results for this W/AUTO DIFF AM CDT procedure are in the results section. ECG 12-LEAD STAT 01/11/2018 10:50 Results for this AM CDT procedure are in the results section. ECG ED PRELIMINARY Routine 01/11/2018 10:43 Results for this INTERPRETATION AM CDT procedure are in the results section. after 04/27/2017 Results POC glucose (04/11/2018 11:49 AM TALENT DEVELOPMENT COORDINATOR)Only the most recent of43 resultswithin the time period is included. POC glucose 377 (H) 65 - 99 mg/dL [facility] Comment: HOSPITAL RN Notified Meter ID: [id number] Flasher Adjuster: Isa Duval Performing Organization Address City/State/Zipcode Phone Number [facility] DEPARTMENT OF PATHOLOGY [address] [place] [address] AND GENOMIC MEDICINE [facility] [address] Urinalysis, automated with microscopy (04/11/2018 11:15 AM TALENT DEVELOPMENT COORDINATOR) Color, UA Straw [facility] Appearance, UA Clear [facility] Specific gravity, UA 1.010 1.001 - 1.030 [facility] pH, UA 7.0 5.0 - 9.0 [facility] Protein, UA Negative Negative [facility] Glucose, UA 3+ (A) Negative [facility] Ketones, UA Negative Negative [facility] Bilirubin, UA Negative Negative [facility] Blood, UA Small (A) Negative [facility] Nitrite, UA Negative Negative [facility] Urobilinogen, UA 0.2 <2.0 E.U./dL [facility] Leukocyte esterase, UA Negative Negative [facility] WBC, UA None seen 0 - 1 /HPF [facility] RBC, UA 1 0 - 5 /HPF [facility] Bacteria, UA None seen None seen [facility] Yeast, UA None seen [facility] Yeast with pseudohyphae, UA None seen [facility] Specimen Urine Performing Organization Address City/[facility] Phone Number [facility] DEPARTMENT OF PATHOLOGY [id number] [place] [address] Estimated GFR (04/11/2018 10:57 AM TALENT DEVELOPMENT COORDINATOR)Only the most recent of11 resultswithin the time period is included. Estimated GFR 55 (A) mL/min/1.73 m2 [facility] CatergoryUnitsInterpretation G1 >=90 Normal or high G2 60-89Mildly decreased H2l26-41Zpaegc to moderately decreased A4o48-31Ppxjmaubuo to severely decreased G4 15-29Severely decreased G5 <15Kidney failure The eGFR was calculated using the Chronic Kidney Disease Epidemiology Collaboration (CKD-EPI) equation. Interpretation is based on recommendations of the National Kidney Foundation-Kidney Disease Outcomes Quality Initiative (NKF-KDOQI) published in 2014. Specimen Plasma specimen Performing Organization Address City/[facility] Phone Number [facility] DEPARTMENT OF PATHOLOGY [address] [place] [address] Basic metabolic panel (04/11/2018 10:57 AM TALENT DEVELOPMENT COORDINATOR)Only the most recent of10 resultswithin the time period is included. Sodium 136 135 - 148 mEq/L [facility] Potassium 4.5 3.5 - 5.0 mEq/L [facility] Chloride 98 98 - 112 mEq/L [facility] CO2 24 24 - 31 mEq/L [facility] Anion gap 14@ANIO 7 - 15 mEq/L [facility] BUN 28 (H) 6 - 20 mg/dL [facility] Creatinine 1.45 (H) 0.70 - 1.20 mg/dL [facility] Glucose 347 (H) 65 - 99 mg/dL [facility] Calcium 8.1 (L) 8.3 - 10.2 mg/dL [facility] Specimen Plasma specimen Performing Organization Address City/[facility] Phone Number [facility] DEPARTMENT OF PATHOLOGY [address] [place] [address] AND GENOMIC MEDICINE [facility] [address] MRI Brain Wo Contrast (04/10/2018 9:39 AM TALENT DEVELOPMENT COORDINATOR) Narrative Performed At EXAMINATION: [facility]ICAL H[facility]ORY: Ataxia COMPARISON:CT brain from yesterday. TECHNIQUE: Multiplanar and multisequence MRI imaging of the brain was obtained without contrast. FINDINGS: There is a small old area of mild increased signal in the left frontal subcortical white matter on the axial diffusion-weighted images with T2 shine through in the central region suggesting an old abnor mality. Differential would include demyelinating disease or chronic changes from other etiology including old stroke. There is mild nonspecific enlargement of the ventricles and extra axial space greater in the anterior region. There are minimal nonspecific white matter changes elsewhere. The orbits, sinuses and mastoid air cells do not show acute abnormality. IMPRESSION: Small nonspecific area of chronic appearing signal changes in the left frontal subcortical white matter [facility]-[id number] Procedure Note Interface, Radiology Results Incoming - 04/10/2018 9:51 AM TALENT DEVELOPMENT COORDINATOR EXAMINATION: MRI BRAIN WO CONTRAST CLINICAL HISTORY: Ataxia COMPARISON: CT brain from yesterday. TECHNIQUE: Multiplanar and multisequence MRI imaging of the brain was obtained without contrast. FINDINGS: There is a small old area of mild increased signal in the left frontal subcortical white matter on the axial diffusion-weighted images with T2 shine through in the central region suggesting an old abnormality. Differential would include demyelinating disease or chronic changes from other etiology including old stroke. There is mild nonspecific enlargement of the ventricles and extra axial space greater in the anterior region. There are minimal nonspecific white matter changes elsewhere. The orbits, sinuses and mastoid air cells do not show acute abnormality. IMPRESSION: Small nonspecific area of chronic appearing signal changes in the left frontal subcortical white matter [facility]-[id number] Performing Organization Address City/[facility]/Zipcode Phone Number [facility] [address] [place] [address] CT Head Wo Contrast (04/09/2018 7:59 PM TALENT DEVELOPMENT COORDINATOR) Narrative Performed At Study: CT HEAD [facility] History:Dizziness vertigo COMPARISON:None. TECHNIQUE: Multiple axial CT images of the head obtained without IV contrast. CT imaging was performed with iterative reconstruction technique and/or automated exposure control to reduce radiation dose. FINDINGS: Parenchymal volume is normal. There is no acute hemorrhage, midline shift, hydrocephalus, edema, or extra-axial collections. .The visualized paranasal sinuses are well aerated.The mastoid air cells are well aerated. No destructive calvarial lesions are seen. The visualized orbits are unremarkable. IMPRESSION: No acute intracranial abnormality. [id number] Procedure Note Interface, Radiology Results Incoming - 04/09/2018 8:09 PM TALENT DEVELOPMENT COORDINATOR Study: CT HEAD WO CONTRAST History:Dizziness vertigo COMPARISON:None. TECHNIQUE: Multiple axial CT images of the head obtained without IV contrast. CT imaging was performed with iterative reconstruction technique and/or automated exposure control to reduce radiation dose. FINDINGS: Parenchymal volume is normal. There is no acute hemorrhage, midline shift, hydrocephalus, edema, or extra-axial collections. .The visualized paranasal sinuses are well aerated. The mastoid air cells are well aerated. No destructive calvarial lesions are seen. The visualized orbits are unremarkable. IMPRESSION: No acute intracranial abnormality. [id number] Performing Organization Address City/[facility]/Zipcode Phone Number LUCY [address] [place] [address] Troponin (04/09/2018 6:39 PM TALENT DEVELOPMENT COORDINATOR)Only the most recent of4 resultswithin the time period is included. Troponin <0.30 0.00 - 0.30 ng/mL [facility] Comment: HOSPITAL 0.11 - 1.49 ng/mlMay indicate increased risk of acute coronary syndrome. >=1.5 ng/mlConsistent with acute myocardial infarction. The diagnostic value of a single normal or non-diagnostic result is questionable.Serial samples at 2-6 hour intervals are required to rule out acute myocardial injury. Specimen Plasma specimen Performing Organization Address City/[facility]/Zipcode Phone Number [facility] DEPARTMENT OF PATHOLOGY [address] [place] [address] AND GENOMIC MEDICINE [facility] CBC with platelet and differential (04/09/2018 6:39 PM TALENT DEVELOPMENT COORDINATOR)Only the most recent of7 resultswithin the time period is included. WBC 10.0 4.5 - 11.0 k/uL [facility] RBC 4.74 4.40 - 6.00 m/uL [facility] HGB 13.4 (L) 14.0 - 18.0 g/dL [facility] HCT 40.8 (L) 41.0 - 51.0 % [facility] MCV 86.1 82.0 - 100.0 fL [facility] MCH 28.3 27.0 - 34.0 pg [facility] MCHC 32.8 31.0 - 37.0 g/dL [facility] RDW - SD 40.4 37.0 - 55.0 fL [facility] MPV 11.7 (H) 6.9 - 11.0 fL [facility] Platelet count 227 150 - 400 K/uL [facility] Nucleated RBC 0.00 /100 WBC [facility] Neutrophils 83.6 (H) 39.0 - 69.0 % [facility] Lymphocytes 10.2 (L) 25.0 - 45.0 % [facility] Monocytes 5.5 0.0 - 10.0 % [facility] Eosinophils 0.1 0.0 - 5.0 % [facility] Basophils 0.2 0.0 - 1.0 % [facility] Immature granulocytes 0.4 0.0 - 1.0 % [facility] Specimen Blood Performing Organization Address City/State/Zipcode Phone Number [facility] DEPARTMENT OF PATHOLOGY [address] [place] [address] AND GENOMIC MEDICINE [facility] [id number] [place] [address] Urinalysis screen and microscopy, with reflex to culture (04/09/2018 5:40 PM TALENT DEVELOPMENT COORDINATOR)Only the most recent of2 resultswithin the time period is included. Specimen site Clean catch [facility] Color, UA Yellow [facility] Appearance, UA Clear [facility] Specific gravity, UA 1.019 1.001 - 1.030 [facility] pH, UA 6.0 5.0 - 9.0 [facility] Protein, UA 2+ (A) Negative [facility] Glucose, UA Negative Negative [facility] Ketones, UA Negative Negative [facility] Bilirubin, UA Negative Negative [facility] Blood, UA Negative Negative [facility] Nitrite, UA Negative Negative [facility] Urobilinogen, UA <2.0 <2.0 E.U./dL [facility] Leukocyte esterase, UA Negative Negative [facility] Epithelial cells, UA <1 /HPF [facility] Round epithelial cells, UA <1 0 - 5 /HPF [facility] WBC, UA 3 (H) 0 - 1 /HPF [facility] RBC, UA 9 (H) 0 - 5 /HPF [facility] Bacteria, UA None seen None seen [facility] Yeast, UA None seen [facility] Yeast with pseudohyphae, UA None seen [facility] Hyaline casts, UA >20 (A) /LPF [facility] Specimen Urine Performing Organization Address City/[facility]/Zipcode Phone Number [facility] DEPARTMENT OF PATHOLOGY [id number] [place] [address] [place] [address] HOSPITAL Urine culture (04/09/2018 5:40 PM TALENT DEVELOPMENT COORDINATOR)Only the most recent of2 resultswithin the time period is included. Urine culture SEE COMMENTComment: Bacteriuria [facility] screen negative. HOSPITAL Performing Organization Address City/[facility]/Zipcode Phone Number [facility] DEPARTMENT OF PATHOLOGY [id number] [place] [address] ECG 12 lead (01/18/2018 1:06 PM TALENT DEVELOPMENT COORDINATOR)Only the most recent of4 resultswithin the time period is included. Ventricular rate 71 [facility] Atrial rate 71 [facility] UT interval 160 [facility] QRSD interval 158 [facility] M[facility] QT interval 458 [facility] QTC interval 497 [facility] P axis 1 48 [facility] QRS axis 1 -60 [facility] T wave axis 24 [facility] EKG impression Normal sinus rhythm-Right bundle branch block-Left anterior fascicular block-^^^ Bifascicular block ^^^-Moderate voltage criteria for LVH, may be normal variant-Abnormal ECG-In automated comparison with [facility] M[facility] ECG of 13-JAN-2018 16:16,-No significant change was found- 8: 14:12 PM Performing Organization Address [facility] Phone Number [facility] MUSE [address] [place] [address] Cv greenhouse laborer procedure (01/18/2018 12:36 PM TALENT DEVELOPMENT COORDINATOR) Narrative Performed At Procedure(s): [email or web address] Cv intracoronary stent placement w angioplasty single major artery or branch Tolerated procedure well Condition: stable Complications:None; patient tolerated the procedure well. Findings: Proximal PDA 90 % lesion Distal RCA 90 % lesion S/p PCI of Proximal PDA with 2.0 x 15 mm resolute stent post dilated up to 2.47 with 2.5 x 12 mm NC balloon S/p PCI of distal RCA with 2.5 X 15Mm Resolute stent post dilated up to 16 elias with 2.5 x 12 mm NC balloon Recommendations - continue asa/brilianta/statins/BB - Aggressive BP control and risk factor modification Performing Organization Address [facility] Phone Number [facility] [address] [place] [address] Prothrombin time with INR (01/18/2018 5:35 AM TALENT DEVELOPMENT COORDINATOR)Only the most recent of3 resultswithin the time period is included. Prothrombin time 13.5 11.5 - 14.5 sec [facility] DEPARTMENT OF PATHOLOGY AND GENOMIC MEDICINE INR 1.1 [facility] DEPARTMENT OF Comment: PATHOLOGY AND GENOMIC The International Normalized Ratio (INR) is a therapeutic MEDICINE monitoring tool for patients who are stable on oral anticoagulant therapy. An INR of 2.0-3.0 is suggested for deep vein thrombosis/pulmonary embolism. Specimen Blood Performing Organization Address City/[facility] Hospitalcode Phone Number [facility] DEPARTMENT OF PATHOLOGY [address] [place] [id number] AND [employer] Hemoglobin A1c (01/15/2018 5:15 AM CDT) Hemoglobin A1C 9.8 (H) 4.0 - 6.0 % [facility] DEPARTMENT OF PATHOLOGY Comment: AND [employer] MEDICINE Less than 6% - Goal of therapy for Type II Diabetes Less than 7%-Goal of therapy for Type I Diabetes Less than 8%-Acceptable control for Type I or Type II Diabetes Greater than 8%-Unacceptable control; action indicated. ([id number]) Specimen Blood Performing Organization Address City/State/Zipcode Phone Number [facility] DEPARTMENT OF PATHOLOGY [address] [facility] [place] [address] AND [employer] US Renal (01/15/2018 12:00 AM CDT) Narrative Performed At EXAMINATION:US RENAL [facility] CLINICAL HISTORY:Positional headache. COMPARISON: None available at this time. IMPRESSION: 1.Unremarkable renal ultrasound. FINDINGS: Right kidney is normal in position, echogenicity, and size measuring 11.3 x 6.5 x 6.0 cm. No mass, calculus, or hydronephrosis identified. Left kidney is normal in position, echogenicity, and size measuring 12.9 x 6.3 x 5.6 cm. No mass, calculus, or hydronephrosis identified. Urinary bladder is unremarkable. Thank you for allowing us to participate in the care of your patient. [facility]-[id number] Procedure Note Interface, Radiology Results Incoming - 01/15/2018 12:38 AM CDT EXAMINATION: US RENAL CLINICAL HISTORY: Positional headache. COMPARISON: None available at this time. IMPRESSION: 1. Unremarkable renal ultrasound. FINDINGS: Right kidney is normal in position, echogenicity, and size measuring 11.3 x 6.5 x 6.0 cm. No mass, calculus, or hydronephrosis identified. Left kidney is normal in position, echogenicity, and size measuring 12.9 x 6.3 x 5.6 cm. No mass, calculus, or hydronephrosis identified. Urinary bladder is unremarkable. Thank you for allowing us to participate in the care of your patient. [facility]-[id number] Performing Organization Address City/State/Zipcode Phone Number [facility] [address] [place] [address] Sodium level, urine, random (01/14/2018 7:45 PM CDT) Total volume, urine 100 mL [facility] DEPARTMENT OF PATHOLOGY AND GENOMIC MEDICINE Urine sodium concentration 64 mEq/L [facility] DEPARTMENT OF PATHOLOGY AND GENOMIC MEDICINE Urine sodium excretion 6Comment: Varies with [facility] DEPARTMENT OF diet. PATHOLOGY AND GENOMIC MEDICINE Specimen Urine Performing Organization Address City/State/Zipcode Phone Number [facility] DEPARTMENT OF PATHOLOGY [id number] [place] [address]. [place] [address] AND GENOMIC MEDICINE Protein, urine, random (01/14/2018 7:45 PM CDT) Total volume, urine 100 mL [facility] DEPARTMENT OF PATHOLOGY AND GENOMIC MEDICINE Urine protein concentration 16 mg/dL [facility] DEPARTMENT OF PATHOLOGY AND GENOMIC MEDICINE Urine protein excretion 16 mg/vol [facility] DEPARTMENT OF PATHOLOGY AND GENOMIC MEDICINE Specimen Urine Performing Organization Address City/[facility]code Phone Number [facility] DEPARTMENT OF PATHOLOGY [address] [place] [address]. [place] [address] AND GENOMIC MEDICINE Creatinine level, urine, random (01/14/2018 7:45 PM CDT) Total volume, urine 100 mL [facility] DEPARTMENT OF PATHOLOGY AND GENOMIC MEDICINE Urine creatinine concentration 87 mg/dL [facility] DEPARTMENT OF PATHOLOGY AND GENOMIC MEDICINE Urine creatinine excretion 87 mg/vol [facility] DEPARTMENT OF PATHOLOGY AND GENOMIC MEDICINE Specimen Urine Performing Organization Address City/[facility] Hospitalcode Phone Number [facility] DEPARTMENT OF PATHOLOGY [id number] [place] [address]. [place] [address] AND GENOMIC MEDICINE XR Chest 2 Vw (01/14/2018 6:23 PM CDT)Only the most recent of2 resultswithin the time period is included. Narrative Performed At Examination:XR CHEST 2 VW [facility] Clinical History: Shortness of breath Comparison: January 11, 2018 Technique: Frontal and lateral views of the chest Impression: Improved diffuse interstitial infiltrates/edema. No consolidation or pleural effusion. Stable cardiomediastinal silhouette with heart size within normal limits. [facility]-[id number] Procedure Note Hm Interface, Radiology Results Incoming - 01/14/2018 6:27 PM CDT Examination: XR CHEST 2 VW Clinical History: Shortness of breath Comparison: January 11, 2018 Technique: Frontal and lateral views of the chest Impression: Improved diffuse interstitial infiltrates/edema. No consolidation or pleural effusion. Stable cardiomediastinal silhouette with heart size within normal limits. [facility]-[id number] Performing Organization Address [facility] Phone Number LUCI AYALA [address] [place] [address] Cv greenhouse laborer procedure (01/13/2018 4:19 PM CDT) Narrative Performed At Procedure(s): [facility] Cv left heart cath w lv gram cors Tolerated procedure well Condition: stable Complications:None; patient tolerated the procedure well. Angiographic Findings: RCA is co dominant vessel with distal RCA 70-80 % disease followed proximal 80-85 % PDA lesion LAD is large vessel wrapping around apexWith evidence of 95 % mid LAD disease , proximal LAD has mild disease LCX large codominant vessel with mild diffuse disease S/p PCI Of Mid LAD with 3.0 x 16 mm Synergy DESPost dilated up to 3.6 mm with 3.5 x 12 mm NC balloon Angiomax bolus followed infusion Loading dose Brillianta given 325 mg po asa given Stage PCI on RCA on Thursday Recommendations - asa/brilinta/BB - hydralazine and Isodril - Patient cannot take lisinopril Performing Organization Address [facility] Phone Number PAUL [address] [place] [address] Echocardiogram complete w contrast and 3D if needed (01/11/2018 2:48 PM CDT) Velocity Ratio (V1/V2) 0.55 m/s [facility] IVS,d 1.16 cm [facility] EF 26.62 % [facility] LVPWD,d 1.65 cm [facility] AoV Mean PG 2.00 mmHg [facility] AV LVOT peak gradient 1.26 mmHg [facility] MV valve area p 1/2 method 4.86 cm2 [facility] PV Pk Grad 1.48 mmHg [facility] E/A ratio 2.00 [facility] E wave decelartion time 156.00 msec [facility] LVOT Diam,S 3.10 cm [facility] LVOT area 7.54 cm2 [facility] LVOT Vmax 0.56 m/s [facility] LVOT VTI 0.09 m [facility] RVOT Vmax 0.52 m/s [facility] AoV Peak PG 4.16 mmHg [facility] MV Peak E Donnie 1.06 m/s [facility] MV stenosis pressure 1/2 time 45.24 ms [facility] MV Peak A Donnie 0.53 m/s [facility] AoV Area, Vmax 4.16 cm2 [facility] AoV Area, VTI 3.97 cm2 [facility] AoV Vmax 1.02 m/s [facility] IVS/LVPW,2D 0.70 [facility] Left Atrium Dimension Anterior 4.90 cm [facility] LV,d 6.47 cm [facility] LV,s 5.65 cm [facility] PV VMAX 0.61 m/s [facility] RVSP (TR) 32.66 mmHg [facility] TR Vpeak 2.38 mm/s [facility] MV E A ratio 1.99 [facility] RA pressure 10.00 mmHg [facility] TR pk grad 22.66 mmHg [facility] MR peak grad 88.36 mmHg [facility] RVSP 32.66 mmHg [facility] Ao Root,d,2D 3.20 cm [facility] LV SYS VOL 156.84 ml [facility] LV GRANADOS VOL 213.74 ml [facility] LV SV Teich 2D 56.90 ml [facility] LV Vol s Teich PSAX 156.84 ml [facility] RVOT pk grad 1.09 mmHg [facility] AoV Cusp sep 2.50 [facility] Aortic Root 3.80 cm [facility] AoV Vmn 0.65 [facility] LA Ao Ratio Mmode 1.24 [facility] LV FS Cube 2D 12.67 [facility] LV FS Teich 2D 12.67 [facility] PA Granados Press 12.63 [facility] UT End Granados Grad 2.63 [facility] UT End Diat Donnie 0.81 [facility] AoV VTI 0.17 m [facility] LV EF,2D 33.41 % [facility] MR Vmax 4.70 m/s [facility] MV AE ratio 0.50 [facility] LVOT Vmn 0.33 [facility] Aov area Vmn 3.84 cm2 [facility] LVOT mean grad 1.00 mmHg [facility] MAX Pred HR 168.50 [facility] 85 of MPHR 143.23 [facility] Ao d LA s ratio 0.65 [facility] Calc MPHR 168.50 bpm [facility] LV SV Cube 2D 90.48 ml [facility] LV vol d cube 2D 270.84 ml [facility] LV vol s cube 2D 180.36 ml [facility] MV Decel slope 6.78 m/s2 [facility] Pred Exer Dur R1 10.01 [facility] Pred METS R1 10.28 [facility] Narrative Performed At Left ventricular systolic function is severely impaired.Left Ventricular [facility] ejection fraction is 20 - 25%. Left atrium size is moderately dilated. Normal right ventricular size, wall thickness and global function. Trace mitral valve regurgitation Unable to assess PA systolic pressure. Spectral Doppler shows restrictive pattern of LV diastolic filling. Elevated LV filling pressure, mean PCWP is 20-25mmHg. Performing Organization Address City/State/Zipcode Phone Number [facility] [address] [place] [address] CT Angiogram Pe Chest (01/11/2018 12:24 PM CDT) Narrative Performed At EXAMINATION: RADI[facility] CT ANGIOGRAM PE CHEST CLINICAL HISTORY: PE suspectedintermediate probpositive D-dimer TECHNIQUE: CT angiographic images of the chest were obtained during intravenous administration of iodinated contrast. Computerized reformatted images and 3-D MIP images were also obtained and archived (CT pulmonary embolus protocol). CT imaging was performed with iterative reconstruction technique and/or automated exposure control to reduce radiation dose. COMPARISON: None. IMPRESSION: 1.Moderate bilateral pleural effusions. Generalized mosaic groundglass appearance of both lungs, likely component of hypoventilatory changes with possible superimposed edema. Few areas of more focal pulmonary opacity in the right lower lobe, lingula, and right middle lobe, possible subsegmental atelectasis and/or pneumonia. 2.Unremarkable thyroid. No pathologically enlarged axillary, mediastinal, or hilar lymph nodes. Calcified mediastinal and left hilar lymph nodes, compatible with prior granulomatous disease. 3.Top normal heart size. No pericardial effusion. Unremarkable aorta and great vessels. 4.Patent pulmonary arteries. No filling defect/pulmonary embolism. 5.Mild degenerative changes in the spine. 6.Calcified granulomas in the spleen. SUMMARY: 1.Moderate bilateral pleural effusions. Generalized mosaic groundglass appearance of both lungs, likely component of hypoventilatory changes with possible superimposed edema. Scattered areas of more focal pulmonary opacity in the lower lungs, possible subsegmental atelectasis and/or pneumonia. 2.No pulmonary embolism. [id number] Procedure Note Interface, Radiology Results Incoming - 01/11/2018 12:34 PM CDT EXAMINATION: CT ANGIOGRAM PE CHEST CLINICAL HISTORY: PE suspected intermediate prob positive D-dimer TECHNIQUE: CT angiographic images of the chest were obtained during intravenous administration of iodinated contrast. Computerized reformatted images and 3-D MIP images were also obtained and archived (CT pulmonary embolus protocol). CT imaging was performed with iterative reconstruction technique and/or automated exposure control to reduce radiation dose. COMPARISON: None. IMPRESSION: 1. Moderate bilateral pleural effusions. Generalized mosaic groundglass appearance of both lungs, likely component of hypoventilatory changes with possible superimposed edema. Few areas of more focal pulmonary opacity in the right lower lobe, lingula, and right middle lobe, possible subsegmental atelectasis and/or pneumonia. 2. Unremarkable thyroid. No pathologically enlarged axillary, mediastinal, or hilar lymph nodes. Calcified mediastinal and left hilar lymph nodes, compatible with prior granulomatous disease. 3. Top normal heart size. No pericardial effusion. Unremarkable aorta and great vessels. 4. Patent pulmonary arteries. No filling defect/pulmonary embolism. 5. Mild degenerative changes in the spine. 6. Calcified granulomas in the spleen. SUMMARY: 1. Moderate bilateral pleural effusions. Generalized mosaic groundglass appearance of both lungs, likely component of hypoventilatory changes with possible superimposed edema. Scattered areas of more focal pulmonary opacity in the lower lungs, possible subsegmental atelectasis and/or pneumonia. 2. No pulmonary embolism. [id number] Performing Organization Address City/State/Zipcode Phone Number [facility] [address] [place] [address] D-dimer (01/11/2018 10:55 AM CDT) D-dimer 1.26 (H) 0.00 - 0.40 ug/mL [facility] DEPARTMENT OF Comment: PATHOLOGY AND GENOMIC Units are ug/ml Fibrinogen Equivalent Unit. MEDICINE When combined with low clinical probability, D-dimer results of less than 0.5 ug/ml FEU have a good negativepredictive value in excluding PE or DVT. For D-dimer results greater than 0.5ug/ml FEU further testing is indicated if PE or DVT is suspectedclinically. Elevated D-dimer results have been reported in DVT, PE, and DIC cases and may indicate the presence of a clot. D-dimer results may be elevated due to old age, , inflammatory diseases, trauma, post-operative states, sepsis, and malignancies. Specimen Blood Performing Organization Address City/[facility] Phone Number [facility] DEPARTMENT OF PATHOLOGY [address] [place] [address] AND [facility] B natriuretic peptide (01/11/2018 10:55 AM CDT) BNP 287 (H) 0 - 100 pg/mL [facility] DEPARTMENT OF PATHOLOGY AND GENOMIC MEDICINE Specimen Blood Performing Organization Address [facility] Phone Number [facility] DEPARTMENT OF PATHOLOGY [id number] [place] [address] AND [facility] Comprehensive metabolic panel (01/11/2018 10:55 AM CDT) Sodium 138 135 - 148 mEq/L [facility] DEPARTMENT OF PATHOLOGY AND GENOMIC MEDICINE Potassium 4.6 3.5 - 5.0 mEq/L [facility] DEPARTMENT OF PATHOLOGY AND GENOMIC MEDICINE Chloride 101 98 - 112 mEq/L [facility] DEPARTMENT OF PATHOLOGY AND GENOMIC MEDICINE CO2 24 24 - 31 mEq/L [facility] DEPARTMENT OF PATHOLOGY AND GENOMIC MEDICINE Anion gap 13@ANIO 7 - 15 mEq/L [facility] DEPARTMENT OF PATHOLOGY AND GENOMIC MEDICINE BUN 20 6 - 20 mg/dL [facility] DEPARTMENT OF PATHOLOGY AND GENOMIC MEDICINE Creatinine 1.22 (H) 0.70 - 1.20 mg/dL [facility] DEPARTMENT OF PATHOLOGY AND GENOMIC MEDICINE Glucose 246 (H) 65 - 99 mg/dL [facility] DEPARTMENT OF PATHOLOGY AND GENOMIC MEDICINE Calcium 9.1 8.3 - 10.2 mg/dL [facility] DEPARTMENT OF PATHOLOGY AND GENOMIC MEDICINE Protein 7.4 6.3 - 8.3 g/dL [facility] DEPARTMENT OF PATHOLOGY AND GENOMIC MEDICINE Albumin 4.0 3.5 - 5.0 g/dL [facility] DEPARTMENT OF PATHOLOGY AND GENOMIC MEDICINE A/G ratio 1.2 0.7 - 3.8 [facility] DEPARTMENT OF PATHOLOGY AND GENOMIC MEDICINE Alkaline phosphatase 67 40 - 129 U/L [facility] DEPARTMENT OF PATHOLOGY AND GENOMIC MEDICINE AST 24 10 - 50 U/L [facility] DEPARTMENT OF PATHOLOGY AND GENOMIC MEDICINE ALT 28 5 - 50 U/L [facility] DEPARTMENT OF PATHOLOGY AND GENOMIC MEDICINE Total bilirubin 0.8 0.2 - 1.2 mg/dL [facility] DEPARTMENT OF PATHOLOGY AND GENOMIC MEDICINE Specimen Plasma specimen Performing Organization Address [facility] Phone Number [facility] DEPARTMENT OF PATHOLOGY [id number] [facility] [place] [address] AND GENOMIC MEDICINE ECG ED Preliminary Interpretation - NOT AN ORDER (01/11/2018 10:43 AM CDT) Narrative Performed At Derik Cornejo MD 01/11/20182:20 PM ECG ED Preliminary Interpretation - Not an Order Performed by: DERIK CORNEJO Authorized by: DERIK CORNEJO ECG reviewed by ED Physician in the absence of a vice president biostatistics: yes Interpretation: Interpretation: abnormal Rate: ECG rate:87 ECG rate assessment: normal Rhythm: Rhythm: sinus rhythm Ectopy: Ectopy: none QRS: QRS axis:Normal QRS intervals:Normal Conduction: Conduction: abnormal Abnormal conduction: complete RBBB, LAFB and bifascicular block ST segments: ST segments:Normal T waves: T waves: inverted Inverted:V1 and aVR after 04/27/2017 Insurance Payer Benefit Plan / Group Subscriber ID Type Phone Address AETNA AETNA HMO,POS,EPO, MC/EC xxxxxxxxx HMO (Home) [place] [phone] [place] [id number] (Work) Advance Directives Patient has advance care planning documents, and code status on file. For more information, please contact:[place] [id number] [place] [address] Code Status Date Activated Date Inactivated Comments Full Code 01/11/2018 2:23 PM 01/19/2018 10:01 PM Code Status decision reached by: Patient
--- OUTSIDE RECORDS SUMMARY | 2018-04-28 10:09 | XMS REPORT | Continuity of Care Document ---
:1965 Author Organization [facility] Address [address] [place] [address] Phone Unavailable Care Team Providers Name Role Phone AILYN GERARD DO Primary Care Physician Insurance Providers Guarantor Isma Esquivel Jr Address [address] [place] [address] Email [email or web address] Payer AETNA Policy Number [id number] Subscriber's Name Isma Esquivel Jr Relationship Self / Same As Patient Group Number [id number] Group Name [facility] Advance Directives Directive Response Recorded Date/Time Patient/Family Given Education Material R/T Y - PB 01/26/18 02/15/18 11: 44am Directives? Problems Medical Problem Onset Date Status Abdominal pain Unknown Acute Diabetes mellitus Unknown Chronic Gastroparesis Unknown Acute Hypertension Unknown Chronic Hypertension, uncontrolled Unknown Acute Pain Unknown Acute Vomiting Unknown Acute Past Problems Medical Problem Onset Date Status Acute pancreatitis Unknown Acute Gastroenteritis Unknown Acute Inflammatory bowel disease Unknown Acute Nausea & vomiting Unknown Acute Nausea & vomiting Unknown Acute Nausea & vomiting Unknown Acute Uncontrolled hypertension Unknown Acute Uncontrolled pain Unknown Acute Medications Current Home Medications Medication Dose Units Route Directions Days Qty Instructions Start Date Glimepiride 1 Tab ORAL Daily 30 Tablet (Glimepiride 4 Mg *) 4 Mg Tab Insulin 30 Units SUBCUTANEOUS Once Daily Detemir (Levemir 100 Units/Ml Insulin*) 100 Units/ Inj Insulin Human 10 Units SUBCUTANEOUS Before Meals Lispro (Insulin Humalog) 100 Mg/ Inj Lisinopril 1 Tab ORAL Daily 30 Tablet (Zestril *) 10 Mg Tab Metformin Hcl 1 Tab ORAL Twice A Day (Glucophage *) 1 000 Tab Omeprazole 1 Cap ORAL Twice A Day 30 Cap (Omeprazole 40 Mg *) 40 Mg Cap Social History Social History Problem Response Recorded Date/Time Onset Date Status Hx Physical Abuse No 01/13/2017 10:52am Not Applicable Not Applicable Smoking Status Start Date Stop Date Never smoker Hospital Discharge Instructions No hospital discharge instruction information available. Plan of Care Prescriptions See Medication Section Functional Status No functional status information available. Allergies, Adverse Reactions, Alerts No known allergies. Immunizations No immunization information available. Vital Signs No vital sign information available. Results No relevant diagnostic test, laboratory data and/or discharge summary information available. Procedures Procedure Status Date Provider(s) CARDIAC REHAB/MONITOR Completed 01/26/18 CARDIAC REHAB/MONITOR Completed 01/26/18 CARDIAC REHAB/MONITOR Completed 01/26/18 CARDIAC REHAB/MONITOR Completed 01/26/18 CARDIAC REHAB/MONITOR Completed 01/26/18 Encounters Encounter Location Arrival/Admit Date Discharge/Depart Date Attending Provider Discharged [place] 02/15/18 11:47am 03/15/18 11:59pm [facility] Discharged [place] 01/26/18 9:07am 02/12/18 11:59pm [facility] MO[facility] MD [facility]
--- OUTSIDE RECORDS SUMMARY | 2018-04-28 10:09 | XMS REPORT | Continuity of Care Document ---
:1965 Author Organization [facility] Address [address] [place] [address] Phone Unavailable Care Team Providers Name Role Phone AILYN GERARD DO Primary Care Physician Insurance Providers Guarantor Isma Esquivel Jr Address [address] [place] [address] Email [email or web address] Payer AETNA Policy Number [id number] Subscriber's Name Isma Esquivel Jr Relationship Self / Same As Patient Group Number [id number] Group Name [facility] Advance Directives Directive Response Recorded Date/Time Patient/Family Given Education Material R/T Y - PB 01/26/18 03/17/18 10: 09am Directives? Problems Medical Problem Onset Date Status [...] Procedure Status Date Provider(s) CARDIAC REHAB/MONITOR Completed 02/15/18 CARDIAC REHAB/MONITOR Completed 02/15/18 Encounters Encounter Location Arrival/Admit Date Discharge/Depart Date Attending Provider Discharged [place] 03/17/18 10:26am 04/15/18 11:59pm [facility] Discharged [place] 02/15/18 11:47am 03/15/18 11:59pm [facility] MO[facility]
--- OUTSIDE RECORDS SUMMARY | 2018-04-28 10:09 | XMS REPORT | Continuity of Care Document ---
:1965 Author Organization [facility] Address [address] [place] [address] Phone Unavailable Care Team Providers Name Role Phone AILYN GERARD DO Primary Care Physician Insurance Providers Guarantor Isma Esquivel Jr Address [address] [place] [address] Email [email or web address] Payer AETNA Policy Number [id number] Subscriber's Name Isma Esquivel Jr Relationship Self / Same As Patient Group Number [id number] Group Name [facility] Advance Directives Directive Response Recorded Date/Time Patient/Family Given Education Material R/T Y - PB 01/26/18 01/26/18 9:06am Directives? Problems Medical Problem Onset Date Status [...] data and/or discharge summary information available. Procedures No procedure information available. Encounters Encounter Location Arrival/Admit Date Discharge/Depart Date Attending Provider Discharged [place] 01/26/18 9:07am 02/12/18 11:59pm [facility]
[2018-04-28] MEDS ORDERED: ONDANSETRON 4 MG/2 ML VIAL ONE (10:34)
[2018-04-28 11:16] LABS: Absolute Lymphocytes (CBC) 0.7 K/uL (0.7-4.9); Absolute Monocytes 0.5 K/uL (0.1-1.3); Absolute Neutrophil 5.9 K/uL (1.8-8.0); Basophils % 0.7 % (0-1.3); Eosinophils % 1.3 % (0-4.4); Hematocrit 41.3 % (39.6-49.0); Lymphocytes % 10.2 % (15.3-44.8); MPV 9.4 fL (7.6-11.3); Monocytes % 6.4 % (3.3-12.3); RBC Red Blood Cell Count 4.85 M/uL (4.33-5.43)
[2018-04-28 11:18] LABS: Albumin 3.6 g/dL (3.4-5.0); Bilirubin Direct 0.3 mg/dL (0-0.2); Bilirubin Total 1.4 mg/dL (0.2-1.0); Potassium 3.4 mmol/L (3.5-5.1); Protein, Total 8.2 g/dL (6.4-8.2)
[2018-04-28] MEDS ORDERED: DICYCLOMINE HCL 10 MG CAP ONE (12:17)
[2018-04-28] MEDS ORDERED: METOCLOPRAMIDE 10 MG/2mL INJ ONE (12:17)
[2018-04-28] MEDS ORDERED: DIPHENHYDRAMINE 50 MG/ML VIAL ONE (12:18)
[2018-04-28] MEDS ORDERED: NA CHLORIDE 0.9% 1,000 ML ONE (12:18)
--- NOTE | 2018-04-28 15:10 | RAD REPORT ---
EXAM DESCRIPTION: CT - Abdomen Pelvis Wo Contrast - 04/28/2018 2:57 pm CLINICAL HISTORY: Abdominal pain with vomiting COMPARISON: 2016 TECHNIQUE: Computed axial tomography of the abdomen and pelvis was obtained. IV was not requested. O ral contrast was given. Coronal reconstructions performed. All CT scans are performed using dose optimization technique as appropriate and may include automated exposure control or mA/KV adjustment according to patient size. FINDINGS: The evaluation of solid organs and vessels is limited secondary to the lack of contrast a dministration. The liver, pancreas, adrenals and kidneys appear grossly normal. Splenic granulomata are present. The appendix is normal. There is no evidence of diverticulitis. Spondylosis L5. Gallbladder is been removed IMPRESSION: No acute abnormality is displayed.
--- NOTE | 2018-04-28 15:37 | ER ---
Nurse's Notes [facility] Name: Reese Esquivel Jr Age: 52 yrs Sex: Male : 1965 Arrival Date: 04/28/2018 Time: 09:40 Bed 20 Private MD: out of town, doctor Diagnosis: Vomiting;Diarrhea, unspecified Presentation: 04/28 09:58 Presenting complaint: Patient states: N/V/D that began 3 weeks ago. Pt reports that he ss was at [facility] approximately 3 weeks ago and was diagnosed with vertigo. Transition of care: patient was not received from another setting of care. Onset of symptoms was May 08, 2018. Risk Assessment: Do you want to hurt yourself or someone else? Patient reports no desire to harm self or others. Initial Sepsis Screen: Does the patient meet any 2 criteria? No. Patient's initial sepsis screen is negative. Does the patient have a suspected source of infection? No. Patient's initial sepsis screen is negative. Care prior to arrival: None. 09:58 Method Of Arrival: Ambulatory ss 09:58 Acuity: RIAZ 3 ss Historical: - Allergies: 10:00 Lisinopril; ss - PMHx: 10:00 Diabetes - IDDM; Gastroparesis; High Cholesterol; Hypertension; ss - PSHx: 10:00 Cholecystectomy; cardiac stents; ss - Immunization history:: Adult Immunizations up to date. - Social history:: Smoking status: Patient/guardian denies using tobacco. - Ebola Screening: : Patient denies exposure to infectious person Patient denies travel to an Ebola-affected area in the 21 days before illness onset. Screenin:20 Abuse screen: Denies threats or abuse. Denies injuries from another. Nutritional aj1 screening: No deficits noted. Tuberculosis screening: No symptoms or risk factors identified. 16:49 Fall Risk None identified. aj1 Assessment: 10:20 General: Appears in no apparent distress. uncomfortable, Behavior is calm, cooperative, aj1 appropriate for age. Pain: Complains of pain in abdomen Pain currently is 6 out of 10 on a pain scale. Neuro: Level of Consciousness is awake, alert, obeys commands, Oriented to person, place, time, situation, Speech is normal, Facial symmetry appears normal. Cardiovascular: Patient's skin is warm and dry. Respiratory: Airway is patent Respiratory effort is even, unlabored, Respiratory pattern is regular, symmetrical. GI: Abdomen is non-distended, Bowel sounds present X 4 quads. Abd is soft and non tender X 4 quads. Reports diarrhea, nausea, vomiting. : No signs and/or symptoms were reported regarding the genitourinary system. EENT: No signs and/or symptoms were reported regarding the EENT system. Derm: No signs and/or symptoms reported regarding the dermatologic system. Skin is pink, warm \T\ dry. normal. Musculoskeletal: No signs and/or symptoms reported regarding the musculoskeletal system. Circulation, motion, and sensation intact. 11:20 Reassessment: Patient appears in no apparent distress at this time. No changes from aj1 previously documented assessment. Patient and/or family updated on plan of care and expected duration. Pain level reassessed. Patient is alert, oriented x 3, equal unlabored respirations, skin warm/dry/pink. 12:20 Reassessment: Patient appears in no apparent distress at this time. No changes from aj1 previously documented assessment. Patient and/or family updated on plan of care and expected duration. Pain level reassessed. Patient is alert, oriented x 3, equal unlabored respirations, skin warm/dry/pink. 13:39 Reassessment: Notified CT that patient has finished his contrast. aj1 13:40 Reassessment: Patient appears in no apparent distress at this time. No changes from aj1 previously documented assessment. Patient and/or family updated on plan of care and expected duration. Pain level reassessed. Patient is alert, oriented x 3, equal unlabored respirations, skin warm/dry/pink. 14:30 Reassessment: Patient and/or family updated on plan of care and expected duration. Pain aj1 level reassessed. General: Appears in no apparent distress. comfortable, Behavior is calm, cooperative, appropriate for age. Neuro: Level of Consciousness is awake, alert, obeys commands, Speech is normal. Cardiovascular: Patient's skin is warm and dry. Respiratory: Airway is patent Respiratory effort is even, unlabored, Respiratory pattern is regular, symmetrical. GI: Reports nausea. Derm: Skin is pink, warm \T\ dry. normal. Musculoskeletal: Circulation, motion, and sensation intact. 15:30 Reassessment: Patient appears in no apparent distress at this time. No changes from aj1 previously documented assessment. Patient and/or family updated on plan of care and expected duration. Pain level reassessed. Patient is alert, oriented x 3, equal unlabored respirations, skin warm/dry/pink. 16:30 Reassessment: Patient appears in no apparent distress at this time. No changes from aj1 previously documented assessment. Patient and/or family updated on plan of care and expected duration. Pain level reassessed. Patient is alert, oriented x 3, equal unlabored respirations, skin warm/dry/pink. Vital Signs: 09:57 BP 153 / 94; Pulse 109; Resp 18; Temp 97.6(TE); Pulse Ox 98% on R/A; Weight 127.01 kg; ss Height 6 ft. 0 in. (182.88 cm); Pain 6/10; 11:05 BP 177 / 88; Pulse 79; Resp 18; Pulse Ox 97% on R/A; aj1 13:08 BP 181 / 88; Pulse 99; Resp 18; Pulse Ox 95% on R/A; aj1 16:30 BP 172 / 82; Pulse 85; Resp 18; Pulse Ox 97% on R/A; aj1 09:57 Body Mass Index 37.97 (127.01 kg, 182.88 cm) ED Course: 09:40 Patient arrived in ED. sb2 09:43 out of town, doctor is Private Physician. sb2 09:57 Arm band placed on right wrist. ss 09:59 Triage completed. 10:04 Cullen Godinez PA is PHCP. [facility] 10:04 Norris Mathew MD is Attending Physician. [facility] 10:19 Adeola Fitch, MICHAEL is Primary Nurse. aj1 10:20 Patient has correct armband on for positive identification. Bed in low position. Call aj1 light in reach. Side rails up X 1. 10:20 No provider procedures requiring assistance completed. aj1 10:25 Missed attempt(s): 22 gauge in right antecubital area. Bleeding controlled, band aid aj1 applied, catheter tip intact. 10:28 Inserted saline lock: 22 gauge in right forearm, using aseptic technique. aj1 14:58 CT Abd/Pelvis - Without Cont In Process Unspecified. EDMS 14:58 CT completed. Patient tolerated procedure well. Patient moved to MA. Patient moved back tn from MA. 15:36 Jovani Palmer MD is Referral Physician. [facility] 16:49 IV discontinued, intact, bleeding controlled, No redness/swelling at site. Pressure aj1 dressing applied. Administered Medications: 10:38 Drug: Zofran 4 mg Route: IVP; Site: right forearm; aj1 11:23 Follow up: Response: No adverse reaction aj1 12:17 CANCELLED (Duplicate Order): Bentyl 20 mg PO once jmm 12:18 Drug: NS 0.9% 1000 ml Route: IV; Rate: 1 bolus; Site: right forearm; aj1 13:15 Follow up: IV Status: Completed infusion; IV Intake: 1000ml aj1 12:18 Drug: Reglan 10 mg Route: IVP; Site: right forearm; aj1 13:15 Follow up: Response: No adverse reaction aj1 12:18 Drug: diphenhydrAMINE 12.5 mg Route: IVP; Site: right forearm; aj1 13:15 Follow up: Response: No adverse reaction aj1 Intake: 13:15 IV: 1000ml; Total: 1000ml. aj1 Outcome: 15:36 Discharge ordered by . [facility] 16:50 Discharged to home ambulatory. aj1 16:50 Condition: good 16:50 Discharge instructions given to patient, Instructed on discharge instructions, follow up and referral plans. medication usage, Demonstrated understanding of instructions, follow-up care, medications, Prescriptions given X 2. 16:50 Patient left the ED. aj1 Signatures: Dispatcher [employer] EDMS Adeola Fitch RN RN aj1 Cullen Godinez PA PA jmm Smirch, Shelby, RN RN ss Jordan, Nathan nj Billeau, Sheri sb2
--- NOTE | 2018-04-28 15:38 | EDPHYS ---
Physician Documentation [facility] Name: Reese Esquivel Jr Age: 52 yrs Sex: Male : 1965 Arrival Date: 04/28/2018 Time: 09:40 Bed 20 Private MD: out of town, doctor ED Physician Norris Mathew HPI: 04/28 10:19 This 52 yrs old Male presents to ER via Ambulatory with complaints of jmm Nausea/Vomiting/Diarrhea. 10:19 The patient presents to the emergency department with nausea, vomiting, diarrhea, jmm abdominal pain. Onset: The symptoms/episode began/occurred gradually, 3 week(s) ago. Possible causes: unknown. The symptoms are aggravated by nothing. The symptoms are alleviated by nothing. This is a 52 year old male with a history of DM, HTN, CAD, gastroparesis, HLP that presents to the ED with complaints of vomiting and nausea for 3 weeks with diarrhea beginning this past Thursday. Patient denies chest pain or shortness of breath. . Historical: - Allergies: 10:00 Lisinopril; ss - PMHx: 10:00 Diabetes - IDDM; Gastroparesis; High Cholesterol; Hypertension; ss - PSHx: 10:00 Cholecystectomy; cardiac stents; ss - Immunization history:: Adult Immunizations up to date. - Social history:: Smoking status: Patient/guardian denies using tobacco. - Ebola Screening: : Patient denies exposure to infectious person Patient denies travel to an Ebola-affected area in the 21 days before illness onset. ROS: 10:19 Constitutional: Negative for fever, chills, and weight loss, Eyes: Negative for injury, jmm pain, redness, and discharge, ENT: Negative for injury, pain, and discharge, Neck: Negative for injury, pain, and swelling, Cardiovascular: Negative for chest pain, palpitations, and edema, Respiratory: Negative for shortness of breath, cough, wheezing, and pleuritic chest pain, Back: Negative for injury and pain. 10:19 Abdomen/GI: Positive for nausea and vomiting, diarrhea. 10:19 All other systems are negative. Exam: 10:19 Constitutional: This is a well developed, well nourished patient who is awake, alert, jmm and in no acute distress. Head/Face: atraumatic. Eyes: EOMI, no conjunctival erythema appreciated ENT: Moist Mucus Membranes Neck: Trachea midline, Supple Chest/axilla: Normal chest wall appearance and motion. Cardiovascular: Regular rate and rhythm. No edema appreciated Respiratory: Normal respirations, no respiratory distress appreciated Abdomen/GI: Non distended, soft 10:19 Skin: General appearance color normal MS/ Extremity: Moves all extremities, no obvious deformities appreciated, no edema noted to the lower extremities Neuro: Awake and alert, normal gait Psych: Behavior is normal, Mood is normal, Patient is cooperative and pleasant 10:19 Abdomen/GI: Inspection: abdomen appears normal, Bowel sounds: normal, Palpation: abdomen is soft and non-tender, in all quadrants. Vital Signs: 09:57 BP 153 / 94; Pulse 109; Resp 18; Temp 97.6(TE); Pulse Ox 98% on R/A; Weight 127.01 kg; ss Height 6 ft. 0 in. (182.88 cm); Pain 6/10; 11:05 BP 177 / 88; Pulse 79; Resp 18; Pulse Ox 97% on R/A; aj1 13:08 BP 181 / 88; Pulse 99; Resp 18; Pulse Ox 95% on R/A; aj1 16:30 BP 172 / 82; Pulse 85; Resp 18; Pulse Ox 97% on R/A; aj1 09:57 Body Mass Index 37.97 (127.01 kg, 182.88 cm) MDM: 10:17 Patient medically screened. [facility] 15:34 Data reviewed: vital signs, nurses notes. Counseling: I had a detailed discussion with [facility] the patient and/or guardian regarding: the historical points, exam findings, and any diagnostic results supporting the discharge/admit diagnosis, lab results, radiology results, the need for outpatient follow up, to return to the emergency department if symptoms worsen or persist or if there are any questions or concerns that arise at home. Response to treatment: the patient's symptoms have resolved after treatment. ED course: Patient tolerates PO in the ED. CT negative. Patient advised to follow up with GI for further evaluation. Patient otherwise given strict return precautions. Patient understood and agrees with the plan of care. . 04/28 10:18 Order name: Basic Metabolic Panel; Complete Time: 11:38 [facility] 04/28 10:18 Order name: CBC with Diff; Complete Time: 11:38 [facility] 04/28 10:18 Order name: Creatinine for Radiology; Complete Time: 11:38 [facility] 04/28 10:18 Order name: Hepatic Function; Complete Time: 11:38 [facility] 04/28 10:18 Order name: Lipase; Complete Time: 11:38 [facility] 04/28 10:18 Order name: IV Saline Lock; Complete Time: 10:38 [facility] 04/28 10:18 Order name: Labs collected and sent; Complete Time: 10:49 [facility] 04/28 12:29 Order name: CT Abd/Pelvis - Without Cont; Complete Time: 15:15 jm Administered Medications: 10:38 Drug: Zofran 4 mg Route: IVP; Site: right forearm; aj1 11:23 Follow up: Response: No adverse reaction aj1 12:17 CANCELLED (Duplicate Order): Bentyl 20 mg PO once [facility] 12:18 Drug: NS 0.9% 1000 ml Route: IV; Rate: 1 bolus; Site: right forearm; aj1 13:15 Follow up: IV Status: Completed infusion; IV Intake: 1000ml aj1 12:18 Drug: Reglan 10 mg Route: IVP; Site: right forearm; aj1 13:15 Follow up: Response: No adverse reaction aj1 12:18 Drug: diphenhydrAMINE 12.5 mg Route: IVP; Site: right forearm; aj1 13:15 Follow up: Response: No adverse reaction aj1 Disposition: 18:56 Co-signature as Attending Physician, Norris Mathew MD. rn Disposition: 04/28/18 15:36 Discharged to Home. Impression: Vomiting, Diarrhea, unspecified. - Condition is Stable. - Discharge Instructions: Diarrhea, Adult, Nausea and Vomiting, Adult. - Prescriptions for omeprazole 40 mg Oral capsule,delayed release(DR/EC) - take 1 capsule by ORAL route once daily before a meal; 20 capsule. Reglan 10 mg Oral Tablet - take 1 tablet by ORAL route every 6 hours take 30 minutes before meals and at bedtime; 20 tablet. - Medication Reconciliation Form, Thank You Letter, Antibiotic Education, Prescription Opioid Use form. - Follow up: Jovani Palmer MD; When: 1 - 2 days; Reason: Recheck today's complaints, Continuance of care, Re-evaluation by your physician. Signatures: Dispatcher [employer] Adeola Elaine RN RN aj1 Cullen Godinez PA PA jmm Nieto, Roman, MD MD rn Smirch, Shelby, RN RN ss Corrections: (The following items were deleted from the chart) 12:17 11:12 Bentyl 20 mg PO once ordered. maribeth stahl 12:36 12:10 Abdomen Limited+[id number].[id number] ordered. EDMS EDMS 16:50 15:36 04/28/2018 15:36 Discharged to Home. Impression: Vomiting; Diarrhea, unspecified. aj1 Condition is Stable. Forms are Medication Reconciliation Form, Thank You Letter, Antibiotic Education, Prescription Opioid Use. Follow up: Jovani Palmer; When: 1 - 2 days; Reason: Recheck today's complaints, Continuance of care, Re-evaluation by your physician. maribeth
[2018-04-28 17:28] VITALS: TEMP 97.6
[2018-04-28 17:32] VITALS: BP 172/82; O2SAT 97
== END 2018-04-28 16:50 | disposition home or self-care (01) ==
LOC: ER 09:38
DX: R11.2 Nausea with vomiting, unspecified (principal); R19.7 Diarrhea, unspecified; E11.9 Type 2 diabetes mellitus without complications; I10 Essential (primary) hypertension; E78.00 Pure hypercholesterolemia, unspecified; Z79.4 Long term (current) use of insulin; Z09 Encounter for follow-up examination after completed treatment for conditions other than malignant neoplasm; Z88.8 Allergy status to other drugs, medicaments and biological substances
CPT/HCPCS: 36415; 74176; 80048; 80076; 83690; 85025; 96361; 96374; 96375; 99284; J2405; J2765; J7030